=== PATIENT | male | born 1955 | race Caucasian/White ===

== ENCOUNTER → 2017-09-23 10:30 | Outpatient (REF) | payer MEDICARE, SELFPAY ==
[2017-09-23 14:20] LABS: Hemoglobin A1C 7.5 % (0.0-7.0)
== END ==
LOC: LAB.CARL 10:30
DX: E11.621 Type 2 diabetes mellitus with foot ulcer (principal)
CPT/HCPCS: 83036

== ENCOUNTER 2020-06-11 11:02 | Inpatient (IN) | payer MEDICARE, SELFPAY ==
[2020-06-11] VITALS (47 sets, daily range): BP systolic 90–160; BP diastolic 47–107; PULSE 81–152; RESP 14–24; TEMP 36.4–36.8; O2SAT 91–99; BMI 36.9; BMI 40.4
--- NOTE | 2020-06-11 11:04 | ECG_ITS ---
APPROVED REPORT Exam: Resting ECG HR:148 bpm ECG Measurements Heart Rate 148 AXES QRSd 164 QRS 219 QT 338 T 31 QTc 530 <Conclusion> Atrial fibrillation with rapid ventricular response Right bundle branch block LAHB Abnormal ECG Electronically signed by : Nikolas Barnes, 06/12/2020 13:54:54
--- NOTE | 2020-06-11 11:09 | HMH.EDGENADL ---
ED Disposition Clinical Impression: Abdominal distention, Tachycardia CHF exacerbation Qualifiers: Heart failure type: unspecified Qualified Code(s): I50.9 - Heart failure, unspecified Atrial fibrillation Qualifiers: Atrial fibrillation type: unspecified Qualified Code(s): I48.91 - Unspecified atrial fibrillation Ascites Qualifiers: Ascites type: due to alcoholic cirrhosis Qualified Code(s): K70.31 - Alcoholic cirrhosis of liver with ascites Disposition: Admitted As Inpatient Condition on Discharge: Fair Time of Disposition: 12:09 - Critical Care Critical Care Time: No Attestation: On , the high probability of a clinically significant, sudden or life threatening deterioration of the following system(s) required my full and direct attention, intervention and personal management. The time I documented below is in addition to time spent performing reported procedures but includes the following listed in this critical care notation. Medical Decision Making - Medical Records Medical records reviewed: Yes: I reviewed the patient's medical records. MR Comment: 64-year-old male likely with history of CHF, hypertension, A. fib, diabetes, who is not been on any of his medications over the last few weeks, presents the emergency department due to abdominal swelling. On arrival he is tachycardic with irregular rhythm, likely A. fib for which he is supposed to be on Eliquis and metoprolol but does not take these medications. He also has edema throughout his lower extremities and his abdomen is distended but nontender. Given this, will get labs including BNP, troponin, though he does not complain of chest pain, labs, CT of the abdomen and chest x-ray, lactate and reassess. On reassessment, he remained stable. After 2 doses of IV dilt, being placed on a drip, his heart rate is in the 110-120. He has mild cardiac congestion and edema in the bilateral lower extremities with a high BNP, likely CHF exacerbation, also has not been anticoagulated for atrial fibrillation nor on his rate control medications, CT of the abdomen pelvis personally reviewed and read by radiology showing ascites, likely from liver cirrhosis. He has a history of alcohol use, but states he has not drank alcohol in over 4 months. Refuses diagnostic or therapeutic paracentesis and is not in respiratory distress, doubt SBP but was covered with ceftriaxone. Spoke with Dr. Man and will admit for further workup and assessment. - Jose Inquiry Pt receiving controlled substance: No Vital Signs: 06/11/20 11:06 06/11/20 12:03 06/11/20 12:15 Temperature 98.0 F Temperature Source Oral Pulse Rate [Right Radial] 152 H 141 H 138 H Respiratory Rate 20 23 24 Blood Pressure [Right Arm] 160/107 H 126/89 120/76 Blood Pressure Mean [Right Arm] 124 101 90 Blood Pressure Source [Right Arm] Blood Pressure Position [Right Arm] 02 Sat by Pulse Oximetry 98 95 97 Oxygen Delivery Method Room Air Room Air Room Air 06/11/20 12:35 06/11/20 12:40 06/11/20 12:50 Temperature Temperature Source Pulse Rate [Right Radial] 132 H 120 H 137 H Respiratory Rate 19 22 Blood Pressure [Right Arm] 102/73 L 106/69 L 113/81 Blood Pressure Mean [Right Arm] 82 81 91 Blood Pressure Source [Right Arm] Automatic Cuff Blood Pressure Position [Right Arm] Supine 02 Sat by Pulse Oximetry 97 96 97 Oxygen Delivery Method Room Air 06/11/20 13:00 06/11/20 13:10 06/11/20 13:20 Temperature Temperature Source Pulse Rate [Right Radial] 136 H 137 H 95 H Respiratory Rate 21 19 22 Blood Pressure [Right Arm] 92/70 L 112/86 116/75 Blood Pressure Mean [Right Arm] 77 94 88 Blood Pressure Source [Right Arm] Blood Pressure Position [Right Arm] 02 Sat by Pulse Oximetry 93 L 95 95 Oxygen Delivery Method 06/11/20 13:30 Temperature Temperature Source Pulse Rate [Right Radial] 120 H Respiratory Rate 20 Blood Pressure [Right Arm] 125/88 Blood Pressure Mean [Right Arm] 100
--- NOTE | 2020-06-11 11:11 | XR_ITS ---
PROCEDURE: XR CHEST PORTABLE CLINICAL HISTORY: sob Shortness of breath, smoker COMPARISON: No exams were available for comparison FINDINGS: There is mild cardiomegaly without failure. The lungs are clear without infiltrates, suspicious nodules, or pleural effusions. Degenerative changes of the shoulders IMPRESSION: Mild cardiomegaly otherwise negative Dictated by: Jaylen Escalera MD 06/11/2020 12:03 Jaylen Escalera MD in [facility] 06/11/2020 12:03
--- NOTE | 2020-06-11 11:21 | CT_ITS ---
PROCEDURE: CT ABDOMEN PELVIS W CON CLINICAL INDICATION: abdominal swelling/ascites? Ascites, abdominal swelling and pain COMPARISON: No exams were available for comparison TECHNIQUE: IV Contrast: 75ML OPTIRAY 350 Oral Contrast None Axial images obtained with sagittal and coronal reformats. All CT scans at the facility use one or more dose reduction, viz: automated exposure control, ma/kV adjustment per patient size (including targeted exams where dose is matched to indication, i.e. head), or iterative reconstruction technique. FINDINGS: LOWER THORAX: Trace bilateral effusions. Coronary artery calcifications ABDOMEN & PELVIS: The liver has a somewhat irregular contour. There is generalized ascites. The spleen has an unremarkable appearance. The pancreas, adrenal glands, and kidneys are unremarkable. No intestinal obstruction or free air. No evidence of appendicitis. Mild amount of pelvic fluid noted. Artifact is present from right hip prosthesis. Scattered small nodes are present in the inguinal region. There is colonic diverticulosis but no evidence of diverticulitis. There is mild diffuse subcutaneous edema. No acute bony findings. Schmorl's node is present along the inferior endplate of T12. IMPRESSION: 1. There is mild diffuse ascites. The liver margin is somewhat irregular suggesting cirrhosis. Please correlate with clinical parameters. 2. No other significant anomalies apparent. Dictated by: Jaylen Escalera MD 06/11/2020 12:08 Jaylen Escalera MD in [facility] 06/11/2020 12:08
[2020-06-11 11:26] LABS: Basophils # 0.1 K/mm3 (0-0.2); Basophils % 0.7 % (0.1-2.0); Eosinophils # 0.2 K/mm3 (0.0-0.4); Eosinophils % 2.1 % (0.1-12.0); Hematocrit 43.7 % (42.0-52.0); Hemoglobin 13.7 g/dL (14.1-18.0); Lymphocytes # 1.4 K/mm3 (0.7-4.5); Lymphocytes % 19.6 % (10-50); Mean Corpuscular HGB Conc 31.2 g/dL (31.8-35.4); Mean Corpuscular Hemoglobin 29.5 pg (27.0-31.2); Mean Corpuscular Volume 94.4 fl (80-94); Mean Platelet Volume 7.5 fl (7.4-10.4); Monocytes # 0.6 K/mm3 (0.1-1.0); Monocytes % 8.5 % (1.7-9.3); Neutrophils # 4.8 K/mm3 (1.8-7.8); Platelet Count 149 K/mm3 (142-424); Red Blood Count 4.63 M/mm3 (4.60-6.20); Red Cell Distribution Width 14.2 % (11.5-17.5)
[2020-06-11 11:27] LABS: Alanine Aminotransferase 13 U/L (12-78); Albumin Level 3.8 g/dl (3.5-5.0); Albumin/Globulin Ratio 1.1 (1.1-1.8); Alkaline Phosphatase 169 U/L (38-126); Anion Gap 12.1 mEq/L (5-15); Aspartate Amino Transferase 25 U/L (17-59); Bilirubin,Total 1.4 mg/dl (0.2-1.3); Blood Urea Nitrogen 19 mg/dl (9-20); Calcium 9.4 mg/dl (8.4-10.2); Carbon Dioxide 32 mmol/L (22.0-30.0); Chloride 96 mmol/L (98-107); Creatinine Clearance Estimated 112 mL/min (50-200); Estimated Glomerular Filt Rate 68 ml/min (>60); GFR (African American) 82 ML/MIN (>60); Globulin 3.5 g/dL (1.3-3.2); Glucose 132 mg/dl (74-100); Potassium 4.1 mmoL/L (3.5-5.1); Sodium 136 mmol/L (136-145); Total Protein,Serum 7.3 g/dl (6.3-8.2)
[2020-06-11 11:34] LABS: Lactic Acid 1.5 mmol/L (0.7-2.1)
[2020-06-11 11:36] LABS: NT Pro Brain Natriuretic Pep. 3870 pg/mL (0-125)
[2020-06-11 11:40] LABS: Troponin I 0.01 ng/ml (0.00-0.034)
[2020-06-11 11:48] LABS: Coronavirus 19 IgG Antibody Positive (Negative)
[2020-06-11 11:49] LABS: Coronavirus 19 IgM Antibody Positive (Negative)
--- NOTE | 2020-06-11 11:50 | PC.NURSE ---
irwin alexander notified ER of pt igg/igm results.
--- NOTE | 2020-06-11 11:54 | PC.NURSE ---
contacted Josee evp head of [facility] regarding pt IGG/IGM positive, plan is to admit pt pending the rest of his testing. Covid swab has been ordered for pt, verifying procedure for admission for pt. Josee states she is going to contact lab and change the swab to an inhouse swab and pt will stay in ER until resulted. notified ER MD of the above
[2020-06-11 11:55] LABS: VBG Base Excess 3.7 mmol/L (-2.4-2.3); VBG HCO3 28.3 mmol/L (23-30); VBG Oxygen Saturation 94.5 % (50-70); VBG PCO2 45.1 mmol/L (35-51); VBG PH 7.42 mmol/L (7.31-7.41); VBG PO2 69.6 mmol/L (28-40); VBG Total CO2 29.7 mmol/L (23-27)
--- NOTE | 2020-06-11 12:50 | PC.NURSE ---
CAIO COLLIER spoke with Dr. Man
--- NOTE | 2020-06-11 12:54 | PC.NURSE ---
contacted care management for admission, spoke with Serene.
--- NOTE | 2020-06-11 13:15 | PC.NURSE ---
Titrated cardizem to 10mg/hr
--- NOTE | 2020-06-11 14:16 | PC.NURSE ---
Contacted lab for update on covid results, stated it would take an additional 80 mins to result
--- NOTE | 2020-06-11 14:22 | PC.NURSE ---
Titrated cardizem to 15mg/hr
--- NOTE | 2020-06-11 15:05 | PC.NURSE ---
Notified that pt is maxed out on cardizem, no new orders given
[2020-06-11 15:12] LABS: Troponin I 0.01 ng/ml (0.00-0.034)
--- NOTE | 2020-06-11 15:32 | HMH.PHAVTE ---
[facility] Pharm[facility] VTE Monitoring - Patient Demographics Admission date: 06/11/20 Report Date: 06/11/20 Time: 15:32 Allergies/Adverse Reactions: Patient Allergies No Known Allergies Allergy (Verified 06/11/20 11:10) Height: 1.75 m Weight: 113.398 kg Patient Problems: Current Active Problems Abdominal distention (Acute) Tachycardia (Acute) CHF exacerbation (Acute) Atrial fibrillation (Acute) Ascites (Acute) - VTE Risk Labs: VTE Related Lab Results Hgb 13.7 g/dL (14.1-18.0) L 06/11/20 10:56 Hct 43.7 % (42.0-52.0) 06/11/20 10:56 Plt Count 149 K/mm3 (142-424) 06/11/20 10:56 BUN 19 mg/dl (9-20) 06/11/20 10:56 Creatinine 1.10 mg/dl (0.66-1.25) 06/11/20 10:56 Estimated Creat Clear 112 mL/min (50-200) 06/11/20 10:56 - Prophylaxis VTE Prophylaxis Ordered?: Yes Types of VTE Prophylaxis: Pharmacological Pharmacologic Type: Other (ELIQUIS)
--- NOTE | 2020-06-11 15:37 | PC.NURSE ---
lab called, swab failed for Covid test, lab will be coming to re swab patient and retest
--- NOTE | 2020-06-11 15:41 | PC.NURSE ---
Lab here to collect repeat swab
--- NOTE | 2020-06-11 15:42 | PC.NURSE ---
notified cleaner housekeeping of pt having to rewabbed for covid r/t previous test failed. asked for a hospital bed for pt for comfort, states she will contact the floor to have staff bring down a bed for pt. contacting cafeteria to get pt a tray. ER aware of the above. will continue to monitor.
--- NOTE | 2020-06-11 15:46 | PC.NURSE ---
Dietary notified for meal tray
--- NOTE | 2020-06-11 16:44 | PC.NURSE ---
pt moved from ER stretcher to hospital bed
--- NOTE | 2020-06-11 17:39 | PC.NURSE ---
SPOKE WITH [facility], THEY STATED NO BEDS AVAILABLE AND UNSURE WHEN THERE WILL BE A BED.
--- NOTE | 2020-06-11 18:00 | PC.NURSE ---
Cardizem titrated to 10mg/hr
--- NOTE | 2020-06-11 18:15 | PC.NURSE ---
Called lab for update on covid swab, stated it would be another hour before completion
[2020-06-11 18:44] LABS: POC Glucose,Bedside 192 (70-110)
--- NOTE | 2020-06-11 19:10 | PC.NURSE ---
patient not on the floor
--- NOTE | 2020-06-11 19:33 | PC.NURSE ---
Cardizem gtt at 5ml/hr as ordered
--- NOTE | 2020-06-11 20:03 | PC.NURSE ---
PT ARRIVED TO THE FLOOR VIA BED W/STAFF FROM ED AT 2004
[2020-06-11 21:13] LABS: POC Glucose,Bedside 135 (70-110)
--- NOTE | 2020-06-11 22:19 | PC.NURSE ---
Late entry: @ 2030 s/w Dr. Man, new order received for Metoprolol Succinate 25mg PO 1x now, BMP Lab for am, Tylenol 500 mg PO q4P for pain, and new parameters for Cardizem gtt. Stop Cardizem gtt if HR < 70 or MAP < 65. ok to continue on Cardizem @ 5mg/hr during the night as long as HR & BP stay in parameters.
--- NOTE | 2020-06-11 22:24 | PC.NURSE ---
Admission pictures completed and Consent signed on chart.
--- NOTE | 2020-06-11 22:25 | PC.NURSE ---
Pt received total shower and placed in gown.
[2020-06-12] VITALS (32 sets, daily range): BP systolic 95–143; BP diastolic 45–91; PULSE 66–132; RESP 16–20; TEMP 36.4–36.9; O2SAT 91–95; BMI 40.0
--- NOTE | 2020-06-12 | XR_ITS ---
PROCEDURE: XR FOOT RT MIN 3V CLINICAL INDICATION: PAIN Pain and stiffness COMPARISON: No exams were available for comparison FINDINGS: This exam was submitted to [facility] for interpretation on 07/30/2020. there has been prior amputation at the proximal aspect of the 5th metatarsal. Mild osteoarthritic changes are present at the metatarsophalangeal joints. There is also mild osteoarthritis at the 1st metatarsophalangeal joint and at the navicular cuneiform joint. Prominent bony hypertrophic changes are present at the anterior distal tibia. Calcaneal spur and an Achilles enthesophyte is noted. IMPRESSION: Degenerative changes as described above. Prior amputation at the proximal to mid aspect of the 5th metatarsal Dictated by: Jaylen Escalera MD 07/30/2020 15:29 Jaylen Escalera MD in [facility] 07/30/2020 15:29
--- NOTE | 2020-06-12 | XR_ITS ---
PROCEDURE: XR ANKLE RT MIN 3V CLINICAL INDICATION: PAIN Pain and stiffness COMPARISON: No exams were available for comparison FINDINGS: The study is submitted to [facility] interpretation on 07/30/2020. There is a nondisplaced fracture involving the distal tibia medially. An old fracture involves the medial malleolar region. Prominent osteoarthritic changes are present at the ankle joint. Small calcaneal spur and small Achilles enthesophyte is noted. IMPRESSION: Nondisplaced oblique fracture at the medial and distal aspect of the tibia possibly old with an old avulsion fracture at the medial malleolus and osteoarthritic change Dictated by: Jaylen Escalera MD 07/30/2020 15:28 Jaylen Escalera MD in [facility] 07/30/2020 15:28
[2020-06-12 00:37] LABS: Microscopic, Urine URINE MICROSCOPIC (MICROSCOPIC)
[2020-06-12 00:44] LABS: Appearance,Urine CLEAR (Clear); Bilirubin,Urine Negative (Negative); Blood, Urine Negative (Negative); Color,Urine YELLOW (Yellow); Glucose,Urine (UA) Negative (Negative); Ketones,Urine Negative (Negative); Leukocyte Esterase,Urine Negative (Negative); Nitrate,Urine Negative (Negative); PH,Urine 5.5 (5.0-8.5); Protein,Urine Negative (Negative); Urobilinogen,Urine 0.2 EU/dl (0.2)
[2020-06-12 00:52] LABS: Bacteria,Urine Trace /lpf
--- NOTE | 2020-06-12 06:00 | PC.NURSE ---
Pt is A&O and has ambulated to the BR 2x this shift with staff assist x1 and pt tolerated well. Pt has denied any SOB, dsypnea, or dizziness. Pt has c/o pain to his legs but reports they always feel like that , pt offered PRN Tylenol but pt refused stating That doesn't do anything . Scattered wheezing noted on lung auscultation. At times during long sentences it is noted the pt needs to take breaks for breath. Although pt continues to deny any SOB or trouble breathing. Room air sat 91-96%. Pt is ~4lbs less than on admission. HR irregular and afib with IVCD noted on tele. Cardizem gtt has continued t/o this shift @ 5mg/hr. HR 80s-100's. A few times up 120s when getting OOB. BP is WNL. Pitting edema noted to anterior bilat feet. Pt reports decreased to no feeling anterior BLE. Pt able to move toes, and ankle fair d/t tightness r/t edema. Dry, scaly skin on BLE. Large ulceration area to anterior of RLE with scabbed areas. Faint distal pulses. Poor nail hygiene. Poor dentition. Pt brought home meds with him, these were placed in the locked med drawer and home med magnet placed on door. Call light within reach, will continue to monitor.
--- NOTE | 2020-06-12 06:35 | PC.NURSE ---
Cardizem gtt increased to 10mg/hr d/t increased HR sustaining 110s-130s.
[2020-06-12 08:08] LABS: Anion Gap 11.1 mEq/L (5-15); Blood Urea Nitrogen 18 mg/dl (9-20); Carbon Dioxide 32 mmol/L (22.0-30.0); Chloride 96 mmol/L (98-107); Creatinine Clearance Estimated 122 mL/min (50-200); Estimated Glomerular Filt Rate 68 ml/min (>60); GFR (African American) 82 ML/MIN (>60); Glucose 114 mg/dl (74-100); Potassium 4.1 mmoL/L (3.5-5.1); Sodium 135 mmol/L (136-145)
--- NOTE | 2020-06-12 08:48 | US_ITS ---
APPROVED REPORT Exam Type: Lower Extremity Segmental Pressures Sprayer Hand: Linsey Gomez RVT Indications Non-healing Ulcer: Right Rest Pain: Bilaterally WOUND RT LATERAL LOWER CALF,DM, REST PAIN,SMOKER,CIRRHOSIS Risk Factors Obesity Diabetes Current Smoker Pressures/Indices Right Indices Left Indices Brachial 105.00 mmHg Brachial 97.00 mmHg Low Thigh 103.00 mmHg 0.98 Low Thigh 114.00 mmHg 1.09 Calf 105.00 mmHg 1.00 Calf 101.00 mmHg 0.96 Ankle(PT) 113.00 mmHg 1.08 Ankle(PT) 110.00 mmHg 1.05 Ankle(DP) 104.00 mmHg 0.99 Ankle(DP) 96.00 mmHg 0.91 Digit 90.00 mmHg 0.86 Digit 70.00 mmHg 0.67 Findings RT IFEOMA:1.08 LT IFEOMA:1.05 RT TBI:0.86 LT TBI:0.67 DAMPENED PULSES ON THE RIGHT, NORMAL ON THE LEFT NORMAL WAVEFORMS BILATERAL Conclusion RT IFEOMA:1.08 LT IFEOMA:1.05 RT TBI:0.86 LT TBI:0.67 DAMPENED PULSES ON THE RIGHT, NORMAL ON THE LEFT NORMAL WAVEFORMS BILATERAL NORMAL IFEOMA Electronically signed by : Jaylen Escalera MD 06/16/2020 17:12:30
--- NOTE | 2020-06-12 09:21 | PC.NURSE ---
cardizem gtt titrated down to 5mg/hr.
--- NOTE | 2020-06-12 10:47 | HMH.PHAINT ---
MEDICATION RECONCILIATION COMPLETED ON PATIENT USING EXTERNAL FILL HISTORY FROM PHARMACY. -WILLY BEARDEN, NAKIAD
--- NOTE | 2020-06-12 11:09 | HMH.HP ---
*Admission Date: 06/11/20 *Chief complaint: scrotal swelling and right foot pain *History of present illness: 64 year old male with history of CVA, DM, HTN, presented to ER with family. Family apparently was concenred about worsening health. Patient originally had no complaints but by this morning claims he was worried about scrotal swelling and right foot pain. Iron is an extremely poor historian and can provide very little medical history. HE reports feeling better this morning. Because of lab abnormalities and EKG he was admitted for CHF exacerbation and A-fib w/RVR. He has remained on Cardizem drip overnight with pulse now between 80-110. I was able to contact his brother, Tony, who reported no history of CAD but iron has had 3 strokes . Patient is generally non-compliant according to his brother. Patient apparently used to drink large quantities of alcohol regularly but has not had alcohol in quite some time. Patient is a smoker. [facility] History I have reviewed the patient's past medical history: Yes Medical History: Reports:: Atrial Fibrillation, Cerebrovascular Accident, Diabetes Mellitus Type 2, Hyperlipidemia, Hypertension, Peripheral Vascular Disease Denies:: Cancer, Diabetes Mellitus Type 1 *Have you ever received a pneumonia vaccine?: No *Have you received a flu vaccine this season?: No Other Medical History: Reports: Arthritis Laterality Cases: Right: Total Hip Replacement Comment: Right Fifth toe amputation - *Social History Last grade of school completed: 9th or 10th Smoking Status: Current every day smoker Tobacco Type: cigarettes # Packs/Day (cigarettes): 2 Alcohol Intake: former Alcohol Intake Frequency:: 3 or more drinks per day *Occupational Status:: disabled Household Members: none *Travel in the last 8 weeks: None Family Hx:: Diabetes, Heart Attack Review of Systems - Review of Systems Review of systems:: pertinent systems reviewed and negative unless documented below - *Genitourinary Reports scrotal swelling - *Musculoskeletal Reports limited joint movement (right foot/ankle), Reports stiffness (right foot ankle) - *Neurologic Reports abnormal walking - Psychiatric Reports confusion Meds Home Medications Medication Instructions Recorded Confirmed Type Amlodipine Besylate [Amlodipine 5 mg PO DAILY 06/11/20 06/11/20 History 5mg tab] Apixaban [Eliquis] 5 mg PO BID 06/11/20 06/11/20 History Atorvastatin Calcium [Lipitor 40mg 40 mg PO HS 06/11/20 06/11/20 History Tablet*] Clopidogrel Bisulfate [Clopidogrel 75 mg PO DAILY 06/11/20 06/11/20 History 75mg Tab] Metformin HCl [Metformin 1000mg 500 mg PO BID 06/11/20 06/11/20 History Tablets] Metoprolol Succinate [Metoprolol 150 mg PO DAILY 06/11/20 06/11/20 History Succinate 100mg Tablet*] Torsemide [Demadex] 40 mg PO DAILY 06/11/20 06/11/20 History glipiZIDE [Glipizide] 10 mg PO BID 06/11/20 06/11/20 History lisinopriL [Lisinopril 10mg Tab] 10 mg PO DAILY 06/11/20 06/11/20 History Albuterol Sulfate [Proair Hfa] 1 - 2 puffs IH Q4HP PRN 06/12/20 06/12/20 History Allergies Allergy/AdvReac Type Severity Reaction Status Date / Time No Known Allergies Allergy Verified 06/11/20 11:10 Exam Vital signs and Labs for Last 24 Hours: Temp Pulse Resp BP Pulse Ox 98.4 F 105 H 17 101/63 L 91 L 06/12/20 08:00 06/12/20 10:36 06/12/20 09:00 06/12/20 10:00 06/12/20 09:00 Laboratory Results - last 24 hr 06/11/20 10:56: WBC 7.0, RBC 4.63, Hgb 13.7 L, Hct 43.7, MCV 94.4 H, MCH 29.5, MCHC 31.2 L, RDW 14.2, Plt Count 149, MPV 7.5, Neut % (Auto) 69.0, Lymph % (Auto) 19.6, [place] % (Auto) 8.5, Eos % (Auto) 2.1, Baso % (Auto) 0.7, Neut # (Auto) 4.8, Lymph # (Auto) 1.4, [place] # (Auto) 0.6, Eos # (Auto) 0.2, Baso # (Auto) 0.1 06/11/20 10:56: Sodium 136, Potassium 4.1, Chloride 96 L, Carbon Dioxide 32 H, Anion Gap 12.1, BUN 19, Creatinine 1.10, Estimated Creat Clear 112, Estimated GFR 68, Est GFR ( Amer) 82, Glucose 132
[2020-06-12 11:25] LABS: POC Glucose,Bedside 99 (70-110)
[2020-06-12 11:41] LABS: POC Glucose,Bedside 173 (70-110)
--- NOTE | 2020-06-12 12:20 | HMH.PTWOUND ---
Rehab Inpt Wound Evaluation Rehab IP Wound Evaluation Start: 06/12/20 08:32 Freq: ONCE Status: Active Protocol: Document 06/12/20 12:16 CLARA (Rec: 06/12/20 12:19 CLARA [id number]) Rehab PT Wound Assessment Patient Status Premedicated Prior to Dressing Change No Subjective Subjective Pt reports he cannot feel anterior lower legs - but states he is very ticklish - Pt alert to name only. Wound Right Lower [place] Wound Type Stasis Ulcer Wound Bed Appearance Beefy Red Percentage Granulated (%) 100 Wound Margins Description Indistinct Surrounding Tissue Appearance Gail Primary Dressing Unna Boot Wound Secondary Dressing Type Unna Boot Wound Debridement Method Mechanical Wound Debridement Amount of Tissue Minimal Removed Wound Debridement Result Healthy Tissue Revealed, Stopped Due to Bleeding, Necrotic Tissue Remains Dressing Change Date 06/12/20 Dressing Change Patient Tolerance Tolerated Poorly Plan/Recommendation Comment Pt wounds appear to be from venous issues and self neglect - pt had log black hair in wound scab and hyperkeratous skin in periwound area. Pt will need home health nsg for wound care/unna boot change and med reconciliation Eval Complexity Eval Charge Codes 22202 - Moderate Complexity G-codes PT Current Status Other PT/OT Status PT Current Status Modifier CN-At least 100% impaired, limited or restricted PT Goal Status Other PT/OT Status PT Goal Status Modifer CN-At least 100% impaired, limited or restricted PHYSICIAN CERTIFICATION: I certify the specified therapy services for Abrahan Pickard are required, authorized, and reviewed every 30 days.
--- NOTE | 2020-06-12 14:50 | PC.NURSE ---
per roxana alicea.
[2020-06-12 16:35] LABS: POC Glucose,Bedside 98 (70-110)
--- NOTE | 2020-06-12 16:37 | PC.NURSE ---
PT HAS BEEN AO T/O SHIFT, ABLE TO ANSWER QUESTIONS AND FOLLOW COMMANDS, VISUAL PROBLEMS NOTED, UNEQUAL PUPILS NOTED, RIGHT PUPIL REACTS SLUGGISHLY AND REMAINS DILATED AT 4, WHILE LEFT EYE REACTS BRISKLY WITH 2MM NOTED, WOULD CARE CONSULT THIS AM, PT RIGHT LEG PAINTED WITH BETADINE AND COVERED WITH DSG IN PLACE C/D/I, SKIN OF LOWER LEGS AND FEET IS DRY AND CRACKED, +1 NON-PITTING EDEMA NOTED BILATERAL FEET, HR HAS REMAINED <100BPM FOR PERIODS T/O SHIFT AND DILTIAZEM DRIP D/C PER GAUTAM WARNER NOTED ON TELE WITH HR 70-90 BPM, PT STATES THAT HE HAS POOR SENSATION IN FEET BUT REACTS WHEN FEET ARE TOUCHED DURING DRESSING CHANGES AND OTHER CARE, POOR DENTITION AND OVERALL HYGIENE NOTED, CALL LIGHT WITHIN REACH, WILL CONTINUE TO MONITOR.
[2020-06-12 20:41] LABS: POC Glucose,Bedside 113 (70-110)
[2020-06-13] VITALS (11 sets, daily range): BP systolic 100–147; BP diastolic 58–78; PULSE 73–105; RESP 16–21; TEMP 36.4–37; O2SAT 89–95; BMI 40.0; BMI 40.1
--- NOTE | 2020-06-13 03:15 | PC.NURSE ---
A&OX4. BLE +2 PITTING EDEMA NOTED WITH DSG C/D/I TO RLE AND SCALY, DRY SKIN TO LLE. WHEEZES NOTED TO BILAT. LUNGS, PT. DENIES SOA. HR 80-90 AT REST AND 90-100 WITH MOVEMENT. AFIB PER CAR SUPERVISOR.
[2020-06-13 05:57] LABS: POC Glucose,Bedside 106 (70-110)
--- NOTE | 2020-06-13 06:50 | CA_ITS ---
APPROVED REPORT EXAM: Comprehensive 2D, Doppler, and color-flow Echocardiogram Industrial Relations Director: Hue Fonseca, RT(R) Ht: 5 ft 9 in Wt: 270lbs BSA: 2.35 BP: 101/63 mmHg Indications: hx CVA, AFIB with RVR, smoker, HTN, hyperlipidemia, noncompliant with medications, DM, PVD, ETHO abuse Echo Enhancing Agent Indication: Endocardial border delineation Agent(s) / Amount(s) Used: Definity 2 cc 2D Dimensions LVOT 2.53 cm (M/F) 1.5-2.5 M-Mode Dimensions RVDd 2.84 cm (0.9-2.6) LVDd 5.34 cm (3.5-5.7) LVDs 4.67 cm (3.5-5.7) IVSd 1.53 cm (0.6-1.1) PWd 0.98 cm (0.6-1.1) EF (Teich) 26.80% FS 12.50% EDV (Teich) 137.70 mL ESV (Teich) 100.80 mL Left Ventricle Technically difficult study because of the patient factors and poor acoustic windows, Definity contrast was utilized to delineate the endocardial surfaces. Left atrium is mildly enlarged, left ventricle is normal size, mild concentric left ventricular hypertrophy, visually estimated ejection fraction 55% with no regional wall motion abnormality, there is no left ventricular thrombus seen. Right Ventricle Right atrium and right ventricle are mildly enlarged with normal contractility. Aortic Valve Aortic valve is minimally thickened and fibrosed, there is no aortic stenosis or aortic insufficiency. Mitral Valve Mitral valve leaflets are minimally thickened, there is mild mitral regurgitation. Tricuspid Valve Tricuspid valve is grossly normal, there is mild tricuspid regurgitation, tricuspid regurgitation jet velocity is inadequate for calculation of the right ventricular systolic pressure. Pulmonic Valve Pulmonic valve is poorly visualized. Great Vessels Aortic root is normal size. Pericardium No significant pericardial effusion noted. Conclusion 1. Biatrial enlargement, normal left ventricular size, mild concentric left ventricular hypertrophy, visually estimated ejection fraction 55% with no regional wall motion abnormality, diastolic parameters are inconclusive. 2. Mildly enlarged right ventricle with normal contractility. 3. Mild mitral and tricuspid regurgitation 4. No significant pericardial effusion noted. Electronically signed by : Merlin Blair, 06/13/2020 13:15:17
--- NOTE | 2020-06-13 07:19 | HMH.ACPN2 ---
Internal Medicine - PN: Subj *Date: 06/13/20 *Time: 07:19 Interval history: Patient complains of overall body pain this morning. Patient has been laying in bed now since admission. He denies shortness of breath. He reports improvement in abdominal distention and scrotal swelling. Patient was evaluated by PT yesterday and had an Unna boot applied to the right lower leg. We have been unable to obtain records from regarding the patient's hospitalizations there earlier in the year. Patient did have decrease in O2 sats to 77% overnight. Drop in O2 sats were transient but did appear to be related to episodes of apnea. Exam Vital signs and Labs for Last 24 Hours: Temp Pulse Resp BP Pulse Ox 98 F 92 H 20 147/77 H 90 L 06/13/20 04:00 06/13/20 04:00 06/13/20 04:00 06/13/20 04:00 06/13/20 04:00 Laboratory Results - last 24 hr 06/12/20 06:01: POC Glucose 99 06/12/20 06:02: Sodium 135 L, Potassium 4.1, Chloride 96 L, Carbon Dioxide 32 H, Anion Gap 11.1, BUN 18, Creatinine 1.10, Estimated Creat Clear 122, Estimated GFR 68, Est GFR ( Amer) 82, Glucose 114 H, Calcium 9.0 06/12/20 11:13: POC Glucose 173 H 06/12/20 16:26: POC Glucose 98 06/12/20 20:20: POC Glucose 113 H 06/13/20 05:33: POC Glucose 106 I & O for Last 24 hours: Intake & Output 06/10/20 06/11/20 06/12/20 06/13/20 11:59 11:59 11:59 11:59 Intake Total 1415 / 1775 890 / 890 Output Total 2400 / 2400 1700 / 1700 Balance -985 / -625 -810 / -810 Weight 250 lb 270 lb 8 oz 270 lb 4 oz Narrative: Patient is in no distress. Heart rate is irregularly irregular. Lungs remain clear. Abdomen is mildly distended and soft without tenderness. Patient continues to have dependent edema of the posterior lower extremities. IFEOMA of the right lower extremity was unremarkable Assessment and Plan (1) Atrial fibrillation with RVR Status: Acute Category: Medical Code(s): I48.91 - Unspecified atrial fibrillation Improved. Patient will have his metoprolol increased back to his home dosing of metoprolol succinate extended release 150 mg daily. Continue digoxin. Echocardiogram today to assess LV function (2) Peripheral arterial disease Status: Chronic Category: Medical Code(s): I73.9 - Peripheral vascular disease, unspecified (3) Diabetes mellitus with hyperglycemia Status: Chronic Qualifiers: Diabetes mellitus type: type 2 Diabetes mellitus nursing home insulin use: without nursing home use Qualified Code(s): E11.65 - Type 2 diabetes mellitus with hyperglycemia Category: Medical Code(s): E11.65 - Type 2 diabetes mellitus with hyperglycemia Stable. (4) Right heart failure Status: Suspected Qualifiers: Heart failure chronicity: acute on chronic Qualified Code(s): I50.813 - Acute on chronic right heart failure Category: Medical Code(s): I50.810 - Right heart failure, unspecified Echocardiogram today. Patient's signs of right heart failure may be due to his possible underlying cirrhosis due to a history of heavy alcohol use (5) Ascites Status: Acute Qualifiers: Ascites type: due to alcoholic cirrhosis Qualified Code(s): K70.31 - Alcoholic cirrhosis of liver with ascites Category: Medical Code(s): R18.8 - Other ascites Ultrasound of the liver today (6) Venous ulcer of right leg Status: Acute Category: Medical Code(s): I83.019 - Varicose veins of right lower extremity with ulcer of unspecified site; L97.919 - Non-pressure chronic ulcer of unspecified part of right lower leg with unspecified severity Maintain Unna boot. Patient will need home health for snf and application of Unna boot at discharge (7) History of partial amputation of toe of right foot Status: Chronic Category: Surgical Code(s): Z89.421 - Acquired absence of other right toe(s) (8) Cognitive impairment Status: Acute Category: Medical Code(s): R41.89 - Other symptoms and signs involving cogniti
--- NOTE | 2020-06-13 09:55 | SW/DCPLANNER ---
Addendum entered by Ashley Lemus 06/13/20 11:26: Yohana has called back and stated that services will begin on Tuesday for this patient. Addendum entered by Ashley Lemus 06/13/20 11:23: Yohana with [facility] is currently reviewing referral. Original Note: SPOKE WITH PATIENT AND HE HAS AGREED TO HAVE HOME HEALTH ..... PATIENT CHOSE [facility] AND I HAVE SENT ORDERS AND PATIENT INFORMATION FOR SERVICES TO START ON TUESDAY PER PATIENT REQUEST.... PATIENT WILL DISCHARGE HOME OVER THE WEEKEND (SAT)..
[2020-06-13 11:25] LABS: POC Glucose,Bedside 97 (70-110)
--- NOTE | 2020-06-13 11:33 | HMH.PTEV ---
Physical Therapy Evaluation Rehab PT IP Evaluation Start: 06/13/20 06:50 Freq: ONCE Status: Active Protocol: Document 06/13/20 11:30 PHORNE (Rec: 06/13/20 11:33 PHORNE [id number]) Subjective/History History History 64 yowm adm to [facility] with a-fib, PAD. He reports he lives alone and has no steps to enter the home. Subjective Subjective Pt c/o feeling tired, but otherwise no significant discomfort. Rehab PT IP Eval Objective Appearance Patient Behavior Appropriate Patient Orientation Person,Place,Time Difficulty following instructions none Speech Pattern Clear Ambulation Patient Able to Ambulate Yes Ambulation Observation IP General Gait Pattern Observation Wide Based Gait Ambulation Distance (feet) 5 Ambulation Assistive Device None Ambulation Ability Contact Guard/Hand Hold Balance Ability to Arise Able, uses arms to help Sitting Balance Steady, safe Standing Balance Steady, wide stance Dynamic Sitting Balance Ability Good Dynamic Standing Balance Ability Fair Transfers Bed Transfer Ability Contact Guard/Hand Hold Chair Transfer Ability Contact Guard/Hand Hold Sit to Stand Bed Transfer Ability Contact Guard/Hand Hold Sit to Stand Chair Transfer Ability Contact Guard/Hand Hold ROM All Extremities PT ROM Status WFL MMT All Extremities PT MMT WFL Rehab PT IP prob,goals,plan Problems Date of Evaluation: 06/13/20 PT IP Problems Bed Mobility,Transfers,Gait Rehab Potential Rehab Potential Good Plan PT Intervention Plan Bed Mobility,Transfers,Gait, Therapeutic Exercise PT Plan Frequency BID Duration LOS Discharge Goals Bed Transfer Ability Supervision/Stand by Sit to Stand Chair Transfer Ability Supervision/Stand by Ambulation Assistive Device Rolling Walker Ambulation Distance (feet) 20 Discharge Plan PT Discharge Plan Pt is appropriate to return home once medically stable, recommend home health therapy. G -code Required No Eval Complexity Eval Charge Codes 51575 - Moderate Complexity PHYSICIAN CERTIFICATION: I certify the specified therapy services for Abrahan Pickard are required, authorized, and reviewed every 30 days.
--- NOTE | 2020-06-13 14:21 | PC.NURSE ---
NOTED THAT PT WAS SCRATCHING HIS RFA TO THE POINT OF BLEEDING. CONSENT OBTAINED FOR PICTURES TO BE TAKEN OF SITE. PICTURES TAKEN AND PLACED ON CHART. AREA CLEANED AND AND CLEAN DRESSING APPLIED. PT EDUCATED ON IMPORTANCE OF NOT ITCHING SKIN AND KEEPING SITE C/D/I.
[2020-06-13 16:27] LABS: POC Glucose,Bedside 142 (70-110)
--- NOTE | 2020-06-13 17:12 | PC.NURSE ---
Pt has been up to chair multiple times this shift requiring only standby assistance. Pt remains on room air. No complaints voiced this shift. Did receive a shower and linen change this shift. Pt was able to bathe himself for the most part only needing occasional assistance. Remains on fluid restriction. Voiding w/o difficulty per urinal. Urine is much less dark than it was at beginning of shift. Ingrid boot in place to RLE, C/D/I. Call rhys w/in reach. VSS. Will continue to monitor.
--- NOTE | 2020-06-13 19:09 | PC.NURSE ---
report given to tommy
[2020-06-13 20:43] LABS: POC Glucose,Bedside 141 (70-110)
[2020-06-14] VITALS: BP 138/78; PULSE 72; PULSE 90; RESP 16; TEMP 36.4; O2SAT 96
--- NOTE | 2020-06-14 01:22 | PC.NURSE ---
2300- O2 2L NC APPLIED: O2 SAT 93%; RA AT REST: 86%
[2020-06-14 04:00] VITALS: BP 137/85; PULSE 81; PULSE 90; RESP 18; TEMP 36.7; O2SAT 93
--- NOTE | 2020-06-14 04:16 | PC.NURSE ---
PT. HAS NOT C/O N/V/D, PAIN, SOA OR DIZZINESS THIS SHIFT. EXPIRATORY WHEEZES NOTED T/O. 2L NC APPLIED INTERMITTENTLY, PT. TOLERATED FAIR. ABD DISTENTION NOTED WITH ACTIVE BOWELS SOUNDS; PT. DENIES ABD TENDERNESS.
[2020-06-14 05:00] VITALS: BMI 39.9
[2020-06-14 05:12] LABS: POC Glucose,Bedside 92 (70-110)
--- NOTE | 2020-06-14 07:00 | US_ITS ---
PROCEDURE: US LIVER CLINICAL INDICATION: Cirrhosis COMPARISON: CT CT ABDOMEN PELVIS W CON from 06/11/2020 US US LIVER from 06/13/2020 FINDINGS: PANCREAS: Unremarkable. No obvious mass or abnormal fluid collection. No ductal dilatation LIVER: There is coarse echogenicity of the liver with some irregularity of the liver surface consistent with cirrhosis. There is appropriate direction of blood flow within a non dilated portal vein. RIGHT KIDNEY: Unremarkable. GALLBLADDER: No gallstones, gallbladder wall thickening, pericholecystic fluid, or biliary dilatation. Small amount fluid is present in the right upper quadrant IMPRESSION: Cirrhotic appearance of the liver. No gallstones. Small amount of fluid noted in the right upper quadrant. Dictated by: Jaylen Escalera MD 06/16/2020 06:15 Jaylen Escalera MD in [facility] 06/16/2020 06:15
--- NOTE | 2020-06-14 07:57 | PC.NURSE ---
Ultrasound called and said they would be here in 15 minutes to do the ultrasound.
[2020-06-14 08:00] VITALS: BP 134/74; PULSE 84; PULSE 90; RESP 18; TEMP 36.5; O2SAT 94
--- NOTE | 2020-06-14 08:16 | HMH.DCSUM ---
General - General Admission date:: 06/11/20 Discharge date: 06/14/20 HPI HPI: 64 year old male with history of CVA, DM, HTN, presented to ER with family. Family apparently was concenred about worsening health. Patient originally had no complaints but by this morning claims he was worried about scrotal swelling and right foot pain. Iron is an extremely poor historian and can provide very little medical history. HE reports feeling better this morning. Because of lab abnormalities and EKG he was admitted for CHF exacerbation and A-fib w/RVR. He has remained on Cardizem drip overnight with pulse now between 80-110. I was able to contact his brother, Tony, who reported no history of CAD but iron has had 3 strokes . Patient is generally non-compliant according to his brother. Patient apparently used to drink large quantities of alcohol regularly but has not had alcohol in quite some time. Patient is a smoker. Hospital Course Hospital Course: Patient was admitted and placed on Cardizem drip for rate control. On the first evening of admission patient was also restarted on his home beta-blockers. By the afternoon of June 12 patient's Cardizem drip was discontinued as patient had been transitioned to metoprolol succinate extended release 100 mg and had begun IV loading of digoxin. Once Cardizem drip was discontinued patient's pulse rate consistently remained under 100. Attempt was made to obtain records from outside hospitals as this was patient's first admission here. When those were not obtained timely enough echocardiogram proceeded. Echocardiogram showed a normal ejection fraction of 55% with biatrial enlargement. Diastolic parameters were inconclusive. Patient remained in atrial fibrillation, although rate controlled, the entirety of hospitalization and was discharged home on metoprolol and digoxin for continued rate control. Patient had been prescribed Eliquis previously by other physicians and this was continued while hospitalized and patient will be on this indefinitely. Patient has history of hypertension. Blood pressure was well controlled during hospitalization by first the Cardizem drip and then initiation of his home medications. Patient is suspected COPD due to a long history of smoking. He did develop wheezing intermittently during hospitalization. Patient will have a controller medication prescribed at discharge (Bevespi) Patient had a superficial wound on the right lower extremity. Wound care was consulted and placed the right lower extremity in an Unna boot. Patient will keep his Unna boot in place and home health for wound care and nursing has been arranged. Patient has cognitive impairment which impairs all aspects of care. Home health has been arranged for nursing education and to assist with medical compliance. Patient complained of body wide pain from arthritis in his back. PT was consulted and felt patient would best be served by continued PT at home. Patient will receive physical therapy services through home health. Patient was detected of having nocturnal hypoxia with O2 sats reaching the 70s on room air while asleep. Patient was started on supplemental oxygen of 2 L/min at night. He will need to continue this indefinitely Patient has diabetes. With a proper diet here his blood sugars were not an issue. Patient will continue his metformin but I will discontinue his sulfonylurea at discharge. Patient had ascites and lower extremity edema which I believe initially may be due to some right-sided heart failure. As patient's mental status improved and we were able to talk with family patient has a history of heavy alcohol use. He has not had any alcohol in approximately [address] scan of the abdomen performed on admission raise concern for cirrhosis. Abdominal ultrasound was ordered which at the time of this dictation has not been finalized. Patient likely has a cirrhotic liver contributing to his asci
[2020-06-14 08:29] VITALS: PULSE 84
[2020-06-14 09:00] VITALS: O2SAT 95
--- NOTE | 2020-06-14 12:07 | PC.NURSE ---
A&OX4. PT TOLERATED ROOM AIR WELL THROUGHOUT SHIFT. RESPIRARATIONS REGULAR AND UNLABORED. NO COUGH NOTED. EXPIRATORY WHEEZES SCATTERED THROUGHOUT. +1 PITTING EDEMA NOTED IN BLE. JANET BOOT NOTED TO RLE. SCABBED SCRATCHES NOTED TO RFA. SCALY SKIN NOTED TO LLE. NO PAIN REPORTED. PT REMAINED AFEBRILE. ACTIVE BOWEL SOUNDS HEARD IN ALL 4 QUADRANTS. SOFT AND NONTENDER BUT DISTENDED. NO BM REPORTED. PT VOIDS PER URINAL. CLEAR YELLOW URINE NOTED. HANG DRESS MARKER EQUAL. PT MOVES INDEPENDENTLY IN BED. PT RECEIVED EDUCATION FROM PHARMACY ON NEW MEDICATIONS BEING SENT HOME WITH PATIENT. PT VERBALIZED UNDERSTANDING. DISCHARGE INSTRUCTIONS GIVEN TO PT AND BROTHER. IVS REMOVED. KOBAN AND 4X4S APPLIED. CATH WAS INTACT. PT RESTING IN CHAIR W CALL LIGHT WITHIN REACH. VSS. WILL CONTINUE TO MONITOR.
[2020-06-14 13:57] LABS: POC Glucose,Bedside 216 (70-110)
== END 2020-06-14 12:07 | disposition home health service (06) | DRG 309 ==
LOC: ER 12:09 → 2ND 15:17
PROVIDERS: Admitting Provider Family Medicine; Emergency Provider Emergency Medicine; Visit Provider Family Medicine
DX: I48.91 Unspecified atrial fibrillation (principal); L97.919 Non-pressure chronic ulcer of unspecified part of right lower leg with unspecified severity; Z86.19 Personal history of other infectious and parasitic diseases; Z79.01 Long term (current) use of anticoagulants; Z79.84 Long term (current) use of oral hypoglycemic drugs; Z72.0 Tobacco use; I50.813 Acute on chronic right heart failure; I11.0 Hypertensive heart disease with heart failure; Z89.421 Acquired absence of other right toe(s); G89.29 Other chronic pain; R41.89 Other symptoms and signs involving cognitive functions and awareness; I69.319 Unspecified symptoms and signs involving cognitive functions following cerebral infarction; I83.018 Varicose veins of right lower extremity with ulcer other part of lower leg; I83.028 Varicose veins of left lower extremity with ulcer other part of lower leg; E11.65 Type 2 diabetes mellitus with hyperglycemia
CPT/HCPCS: 36415; 71045; 73610; 73630; 74177; 76705; 80048; 80053; 81001; 82803; 82962; 83605; 83880; 84484; 85025; 86328; 87040; 93005; 93306; 93923; 96365; 96366; 96367; 96375; 96376; 97116; 97162; 99284; Q9957; Q9967; U0003

== ENCOUNTER 2020-06-24 17:15 | Inpatient (IN) | payer MEDICARE, SELFPAY ==
[2020-06-24] VITALS (12 sets, daily range): BP systolic 127–162; BP diastolic 80–110; PULSE 76–134; RESP 16–22; TEMP 36.4–36.8; O2SAT 94–98; BMI 31.1; BMI 33.0; BMI 35.2
--- NOTE | 2020-06-24 17:16 | CT_ITS ---
PROCEDURE: CT HEAD/BRAIN WO CON CLINICAL INDICATION: confusion, vision trouble COMPARISON: No exams were available for comparison TECHNIQUE: Axial images obtained. All CT scans at the facility use one or more dose reduction, viz: automated exposure control, ma/kV adjustment per patient size (including targeted exams where dose is matched to indication, i.e. head), or iterative reconstruction technique. FINDINGS: No midline shift, mass effect, intracranial hemorrhage, hydrocephalus, or extra-axial fluid collection is evident. There is a large area of encephalomalacia involving the left posterior temporal and occipital lobe as well as the parietal occipital junction consistent with an old area of infarction in the posterior cerebral artery territory. There is generalized atrophy with hypoattenuation of the periventricular white matter consistent with microangiopathic changes.. The calvarium has an unremarkable appearance. No mastoid effusion. There is a 17 mm mucous retention cyst in the right maxillary sinus medially IMPRESSION: 1. No acute intracranial findings. 2. 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 Dictated by: Jaylen Escalera MD 06/25/2020 07:01 Jaylen Escalera MD in [facility] 06/25/2020 07:01
--- NOTE | 2020-06-24 17:16 | PC.NURSE ---
fsbs 114
--- NOTE | 2020-06-24 17:17 | PC.NURSE ---
rad notified of CT order ER at upon arrival of pt
--- NOTE | 2020-06-24 17:22 | XR_ITS ---
PROCEDURE: XR CHEST PORTABLE CLINICAL HISTORY: confusion Smoker COMPARISON: CR XR CHEST PORTABLE from 06/11/2020 FINDINGS: Cardiomegaly without failure. Chronic coarsening of the bronchovascular markings is noted. Patchy density is present in the right mid lung suggesting an area of infiltrate. Increased markings are present in the lower lobes which are probably chronic. There may be some atelectatic changes in the lung bases. Degenerative changes noted of the shoulders. IMPRESSION: Cardiomegaly with chronic changes in the right midlung infiltrate. Dictated by: Jaylen Escalera MD 06/24/2020 17:49 Jaylen Escalera MD in [facility] 06/24/2020 17:49
--- NOTE | 2020-06-24 17:22 | PC.NURSE ---
pt to Ct for stroke protocol
[2020-06-24 17:32] LABS: Basophils # 0.1 K/mm3 (0-0.2); Basophils % 0.9 % (0.1-2.0); Eosinophils # 0.2 K/mm3 (0.0-0.4); Eosinophils % 2.8 % (0.1-12.0); Hemoglobin 14.3 g/dL (14.1-18.0); Lymphocytes # 1.3 K/mm3 (0.7-4.5); Mean Corpuscular HGB Conc 31.8 g/dL (31.8-35.4); Mean Corpuscular Hemoglobin 29.7 pg (27.0-31.2); Mean Corpuscular Volume 93.3 fl (80-94); Mean Platelet Volume 7.7 fl (7.4-10.4); Monocytes # 0.6 K/mm3 (0.1-1.0); Neutrophils # 4.9 K/mm3 (1.8-7.8); Neutrophils % 69.3 % (37.0-80.0); Platelet Count 129 K/mm3 (142-424); Red Blood Count 4.83 M/mm3 (4.60-6.20); Red Cell Distribution Width 14.1 % (11.5-17.5); White Blood Count 7.1 K/mm3 (4.8-10.8)
[2020-06-24 17:36] LABS: Chloride 97 mmol/L (98-107); Sodium 134 mmol/L (136-145)
[2020-06-24 17:37] LABS: Potassium 4.3 mmoL/L (3.5-5.1)
--- NOTE | 2020-06-24 17:39 | ECG_ITS ---
APPROVED REPORT Exam: Resting ECG HR:118 bpm ECG Measurements Heart Rate 118 AXES QRSd 180 QRS 223 QT 350 T 32 QTc 490 Conclusion Undetermined rhythm Right bundle branch block Abnormal ECG Electronically signed by : Hammad Abarca, 06/29/2020 09:51:00
[2020-06-24 17:40] LABS: Alanine Aminotransferase 14 U/L (12-78); Albumin Level 4.2 g/dl (3.5-5.0); Alkaline Phosphatase 147 U/L (38-126); Anion Gap 11.3 mEq/L (5-15); Aspartate Amino Transferase 29 U/L (17-59); Bilirubin,Direct 0.5 mg/dl (0.0-0.4); Bilirubin,Indirect 0.7 mg/dL (0.0-0.9); Bilirubin,Total 1.2 mg/dl (0.2-1.3); Bilirubin,Unconjugated 0.7 mg/dL (0.0-1.1); Blood Urea Nitrogen 18 mg/dl (9-20); Calcium 9.5 mg/dl (8.4-10.2); Carbon Dioxide 30 mmol/L (22.0-30.0); Creatinine Clearance Estimated 113 mL/min (50-200); Estimated Glomerular Filt Rate 98 ml/min (>60); GFR (African American) 119 ML/MIN (>60); Glucose 131 mg/dl (74-100); Total Protein,Serum 7.6 g/dl (6.3-8.2)
--- NOTE | 2020-06-24 17:46 | HMH.EDGENADL ---
ED Disposition Clinical Impression: Rapid atrial fibrillation, Confusion Pneumonia Qualifiers: Pneumonia type: due to unspecified organism Laterality: right Lung location: middle lobe of lung Qualified Code(s): J18.9 - Pneumonia, unspecified organism Disposition: Admitted as Observation Condition on Discharge: Serious - Critical Care Critical Care Time: Yes Attestation: On , the high probability of a clinically significant, sudden or life threatening deterioration of the following system(s) required my full and direct attention, intervention and personal management. The time I documented below is in addition to time spent performing reported procedures but includes the following listed in this critical care notation. Total Critical Care Time: 30 Vital system(s) involved:: Circulatory Failure My critical care processes included: Assessment & monitoring of V/S, Initial and Re-exams, Data Review/Interpretation, Coordinating Care, Medication Orders and management, Documentation Medical Decision Making - Medical Records Medical records reviewed: Yes: I reviewed the patient's medical records. MR Comment: Patient admitted here 06/11/2020 through 06/14/2020 for atrial fibrillation with rapid ventricular response. Record indicates a history of 3 prior strokes. Noted to be a very poor historian able to provide very little history. Noted to be very noncompliant. Noted to have a prior past history of alcoholism. Suspected of having cirrhosis. - Jose Inquiry Pt receiving controlled substance: No Vital Signs: 06/24/20 17:15 06/24/20 17:59 06/24/20 19:16 Temperature 98.2 F Temperature Source Oral Pulse Rate [Right Radial] 134 H 134 H 111 H Respiratory Rate 18 18 Blood Pressure [Right Arm] 146/110 H 162/101 H 160/97 H Blood Pressure Mean [Right Arm] 122 121 118 Blood Pressure Source [Right Arm] Automatic Cuff Blood Pressure Position [Right Arm] Sitting Sitting Sitting 02 Sat by Pulse Oximetry 98 96 96 Oxygen Delivery Method Room Air Room Air Room Air Oxygen Flow Rate (LPM) 06/24/20 19:30 06/24/20 20:00 06/24/20 20:30 Temperature Temperature Source Pulse Rate [Right Radial] 128 H 113 H 101 H Respiratory Rate 22 18 17 Blood Pressure [Right Arm] 153/109 H 127/90 147/93 H Blood Pressure Mean [Right Arm] 123 102 111 Blood Pressure Source [Right Arm] Automatic Cuff Automatic Cuff Automatic Cuff Blood Pressure Position [Right Arm] Supine Supine Supine 02 Sat by Pulse Oximetry 95 94 L 95 Oxygen Delivery Method Room Air Room Air Nasal Cannula Oxygen Flow Rate (LPM) 2 06/24/20 21:00 06/24/20 21:30 Temperature Temperature Source Pulse Rate [Right Radial] 104 H 96 H Respiratory Rate 17 17 Blood Pressure [Right Arm] 144/98 H 147/96 H Blood Pressure Mean [Right Arm] 113 113 Blood Pressure Source [Right Arm] Automatic Cuff Automatic Cuff Blood Pressure Position [Right Arm] Supine Supine 02 Sat by Pulse Oximetry 96 97 Oxygen Delivery Method Room Air Room Air Oxygen Flow Rate (LPM) - Lab Data Lab results reviewed: Yes: I reviewed the patient's lab results. Lab Results 06/24/20 17:20: WBC 7.1, RBC 4.83, Hgb 14.3, Hct 45.0, MCV 93.3, MCH 29.7, MCHC 31.8, RDW 14.1, Plt Count 129 L, MPV 7.7, Neut % (Auto) 69.3, Lymph % (Auto) 19.0, [place] % (Auto) 8.0, Eos % (Auto) 2.8, Baso % (Auto) 0.9, Neut # (Auto) 4.9, Lymph # (Auto) 1.3, [place] # (Auto) 0.6, Eos # (Auto) 0.2, Baso # (Auto) 0.1 06/24/20 17:20: Sodium 134 L, Potassium 4.3, Chloride 97 L, Carbon Dioxide 30, Anion Gap 11.3, BUN 18, Creatinine 0.80, Estimated Creat Clear 113, Estimated GFR 98, Est GFR ( Amer) 119, Glucose 131 H, Calcium 9.5 06/24/20 17:20: Total Bilirubin 1.2, Direct Bilirubin 0.5 H, Conjugated Bilirubin 0.0, Indirect Bilirubin 0.7, Unconjugated Bilirubin 0.7, AST 29, ALT 14, Alkaline Phosphatase 147 H, Total Protein 7.6, Albumin 4.2 06/24/20 17:20: SARS-CoV-2 IgG Ab (Rapid) Negative, SARS-CoV-2 IgM Ab (Rapid) Negative 06/24/20 17:20: Digox
--- NOTE | 2020-06-24 18:08 | PC.NURSE ---
CAIO COLLIER viewing [facility] report at this time
[2020-06-24 18:16] LABS: Activated Partial Thrombo Time 27.5 seconds (23.6-34.0); INR 1.16 (0.9-1.1); Prothrombin Time 12.7 seconds (9.4-11.8)
[2020-06-24 18:23] LABS: Ammonia < 9 umol/L (9-30)
[2020-06-24 18:24] LABS: ABG Base Excess 4.3 mmol/L (-2.4-2.3); ABG HCO3 28.9 mmhg (22.0-26.0); ABG Oxygen Saturation 94 % (90-100); ABG PCO2 46.5 mmhg (35.0-45.0); ABG PH 7.41 mmol/L (7.35-7.45); ABG PO2 69.5 mmhg (80-100); ABG TCO2 30.3 mmhg (23-27)
[2020-06-24 18:25] LABS: Allen's Test Acceptable; Oxygen 21% RA %; Source Right Radial
--- NOTE | 2020-06-24 18:54 | PC.NURSE ---
notified ER MD of radiologist reading of chest xray of infiltrate. ER MD gave verbal orders for blood cultures and lactic acid on pt, asked ER MD about antibiotic orders, ER MD states he needs go over pts chart again and then he will place orders.
--- NOTE | 2020-06-24 19:00 | PC.NURSE ---
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
--- NOTE | 2020-06-24 19:02 | PC.NURSE ---
per anival in pharmacy give pt a loading dose of Vancomycin 2g IV per IV and then a maintenance dose of Vancomycin 1.5g every 12 hours. notified ER MD of dosing recommended by pharmacy
--- NOTE | 2020-06-24 19:15 | PC.NURSE ---
shift change report given to anandrn
[2020-06-24 19:22] LABS: Lactic Acid 0.9 mmol/L (0.7-2.1)
[2020-06-24 20:55] LABS: Coronavirus 19 IgG Antibody Negative (Negative); Coronavirus 19 IgM Antibody Negative (Negative)
--- NOTE | 2020-06-24 21:54 | PC.NURSE ---
Cardizem drip started at 5ml/min at 1954 Increased to 10ml/min at 2154
--- NOTE | 2020-06-24 22:13 | PC.NURSE ---
patient up to floor via stretcher.
[2020-06-25] VITALS (26 sets, daily range): BP systolic 108–157; BP diastolic 67–98; PULSE 50–118; RESP 16–20; TEMP 36.4–36.7; O2SAT 90–95; BMI 35.2
--- NOTE | 2020-06-25 00:20 | PC.NURSE ---
He is alert to name and birthday. Confusion noted. Per medical record, the ambulance was called for new onset AMS. He is a poor historian. Unaware of any of his medical hx, surgical hx, and medications. Medical hx pulled per medical record. Medications will need to be verified with pharmacy. Written on kardex that meds still need to be verified. He is disheveled. States he lives alone but cannot state if he lives in an apartment or in a house. Attempted to contact Leighann Olivier at [phone] on 06/24/20 to see if pt has a POA so that consent can be obtained to get pictures of his legs but there was no answer. Also written on kardex that pictures are needed. Severe dry, flaky skin noted on LLE and right toes. RLE has a DSG on it that is C/D/I. Will obtain pictures as soon as consent is obtained. He continues on RA. Controlled afib on telemetry with a BBB. He states he is able to read and write a little bit. His skin is starkey in color and abdominal distention noted.
--- NOTE | 2020-06-25 01:27 | PC.NURSE ---
Mental status reassessed he was able to state his name, the year, and where he was but could not state his birthday. He stated too much thinking. Reassessed 15 mins later and he could answer all of the above except for his birthday and the year. DSG on RLE removed. Skin is intact but discolored, dry, and flaky. Discoloration, dryness, and flaky skin begins 9 cm below the patella on his RLE and extends to his toes and begins 13cm below his right knee and extends to his toes. RLE redressed.
--- NOTE | 2020-06-25 02:26 | PC.NURSE ---
He is A&Ox4 at this time. He is slow to respond to questions and has to be encouraged to answer all questions. He gave verbal consent for pictures.
[2020-06-25 05:23] LABS: POC Glucose,Bedside 119 (70-110)
--- NOTE | 2020-06-25 07:31 | P.CONPHA_ITS ---
[facility] Pharmacy VTE Monitoring - Patient Demographics Admission date: 06/25/20 Report Date: 06/25/20 Time: 07:31 Allergies/Adverse Reactions: Patient Allergies No Known Allergies Allergy (Verified 06/25/20 00:02) Height: 1.83 m Weight: 118.189 kg Patient Problems: Current Active Problems Pneumonia (Acute) Rapid atrial fibrillation (Acute) Confusion (Acute) - VTE Risk Labs: VTE Related Lab Results Hgb 14.3 g/dL (14.1-18.0) 06/24/20 17:20 Hct 45.0 % (42.0-52.0) 06/24/20 17:20 Plt Count 129 K/mm3 (142-424) L 06/24/20 17:20 PT 12.7 seconds (9.4-11.8) H 06/24/20 17:54 INR 1.16 (0.9-1.1) H 06/24/20 17:54 APTT 27.5 seconds (23.6-34.0) 06/24/20 17:54 BUN 18 mg/dl (9-20) 06/24/20 17:20 Creatinine 0.80 mg/dl (0.66-1.25) 06/24/20 17:20 Estimated Creat Clear 113 mL/min (50-200) 06/24/20 17:20 Was VTE Risk Assessment Performed: Yes VTE Score: 5 VTE Risk Level: Low Risk Clinical Trial Participant: No - Prophylaxis VTE Prophylaxis Ordered?: Yes Types of VTE Prophylaxis: TEDS Knee High
--- NOTE | 2020-06-25 07:39 | HMH.PHAINT ---
HOME MEDICATION RECONCILIATION COMPLETED USING LIST FROM [facility]
--- NOTE | 2020-06-25 08:30 | P.CONPHA_ITS ---
- Pharmacy Consult Date: 06/25/20 Time: 08:30 Referring provider: DR. TAMAYO Reason for Consult:: VANCOMYCIN DOSING Allergies and ADEs:: Allergies Allergy/AdvReac Type Severity Reaction Status Date / Time No Known Allergies Allergy Verified 06/25/20 00:02 Home Medications:: Home Medications Medication Instructions Recorded Confirmed Type Albuterol Sulfate [Proair Hfa] 1 - 2 puffs IH Q4HP PRN #1 inh 06/14/20 06/24/20 Rx Apixaban [Eliquis] 5 mg PO BID #60 tab 06/14/20 06/24/20 Rx Atorvastatin Calcium [Lipitor 40mg 40 mg PO HS #30 tab 06/14/20 06/24/20 Rx Tablet*] Clopidogrel Bisulfate [Clopidogrel 75 mg PO DAILY #30 tab 06/14/20 06/24/20 Rx 75mg Tab] Digoxin [Digoxin 0.125mg Tablet] 125 mcg PO DAILY 06/24/20 06/24/20 History Glycopyrrolate/Formoterol Fum 2 puffs IH BID 06/24/20 06/25/20 History [Bevespi Aerosphere Inhaler] Metformin HCl 500 mg PO BID 06/24/20 06/24/20 History Metoprolol Succinate [Toprol XL 150 mg PO DAILY 06/24/20 06/24/20 History 100mg tablet] Spironolactone [Spironolactone 25 mg PO DAILY 06/24/20 06/24/20 History 25mg Tablet] Torsemide [Demadex 20mg tablet] 20 mg PO DAILY 06/24/20 06/24/20 History lisinopriL [Zestril 5mg 5 mg PO DAILY 06/24/20 06/24/20 History Tablet] Height: 1.83 m Weight: 118.189 kg Laboratory Results:: Laboratory Results - last 24 hr 06/24/20 17:20: WBC 7.1, RBC 4.83, Hgb 14.3, Hct 45.0, MCV 93.3, MCH 29.7, MCHC 31.8, RDW 14.1, Plt Count 129 L, MPV 7.7, Neut % (Auto) 69.3, Lymph % (Auto) 19.0, [place] % (Auto) 8.0, Eos % (Auto) 2.8, Baso % (Auto) 0.9, Neut # (Auto) 4.9, Lymph # (Auto) 1.3, [place] # (Auto) 0.6, Eos # (Auto) 0.2, Baso # (Auto) 0.1 06/24/20 17:20: Sodium 134 L, Potassium 4.3, Chloride 97 L, Carbon Dioxide 30, Anion Gap 11.3, BUN 18, Creatinine 0.80, Estimated Creat Clear 113, Estimated GFR 98, Est GFR ( Amer) 119, Glucose 131 H, Calcium 9.5 06/24/20 17:20: Total Bilirubin 1.2, Direct Bilirubin 0.5 H, Conjugated Bilirubin 0.0, Indirect Bilirubin 0.7, Unconjugated Bilirubin 0.7, AST 29, ALT 14, Alkaline Phosphatase 147 H, Total Protein 7.6, Albumin 4.2 06/24/20 17:20: SARS-CoV-2 IgG Ab (Rapid) Negative, SARS-CoV-2 IgM Ab (Rapid) Negative 06/24/20 17:20: Digoxin 0.40 06/24/20 17:53: Specimen Source Right radial, O2 % 21% ra, ABG pH 7.41, ABG pCO2 46.5 H, ABG pO2 69.5 L, ABG HCO3 28.9 H, ABG Total CO2 30.3 H, ABG O2 Saturation 94, ABG Base Excess 4.3 H, Jaylen Test Acceptable 06/24/20 17:54: PT 12.7 H, INR 1.16 H, APTT 27.5 06/24/20 18:07: Ammonia < 9 L 06/24/20 19:05: Lactate 0.9 06/25/20 04:58: POC Glucose 119 H Medical History: Reports:: Atrial Fibrillation, Congestive Heart Failure, Cerebrovascular Accident, Diabetes Mellitus Type 2, Hyperlipidemia, Hypertension, Peripheral Artery Disease, Peripheral Vascular Disease Denies:: Cancer, Diabetes Mellitus Type 1, MRSA Assessment and Plan - Assessment and plan all Dx Assessment and Plan for all problems:: BASED ON PATIENT FACTORS, RECOMMEND INITIATING VANCOMYCIN AT 2,250MG IV EVERY 12 HOURS. PHARMACY WILL OBTAIN TROUGH LEVEL AND ADJUST DOSE APPROPRIATE. PATIENT RECEIVED 2GM IN ER AND 1,500MG AT 0600 THIS MORNING. -WILLY BEARDEN PHARMD
--- NOTE | 2020-06-25 09:05 | PC.NURSE ---
Cardizem gtt decreased to 5mls/hr @ 0905; V/S as documented
--- NOTE | 2020-06-25 09:29 | HMH.HP ---
*Admission Date: 06/25/20 <Dunia Nolan - 06/25/20 09:37> *Chief complaint: AMS <Dunia Nolan - 06/25/20 13:33> *History of present illness: Mr. Pickard is a 64-year-old male with a history of atrial fibrillation, CVA, type 2 diabetes mellitus, hyperlipidemia, hypertension, peripheral vascular disease who was recently hospitalized at [facility] from 06/11/2020 to 06/14/2020 for atrial fibrillation with a rapid ventricular response. He was sent from home by Home Health due to his confusion which they felt was new. Patient is felt to be very noncompliant and does not know if he was taking his meds since the discharge. He does have a prior history of alcoholism but states he has not had a drink in 2 years. With evaluation in the emergency room CT of the head showed no acute intracranial findings and old left posterior cerebral artery distribution infarction ; Chest x-ray showed cardiomegaly with chronic changes in the right midlung infiltrate. Laboratory results showed a low platelet count at 129 and otherwise normal .ABG showed a pH of 7.41, PCO2 of 46.5, PO2 of 69.5 and a bicarb of 28.9. Blood chemistries were satisfactory. He does have some elevation in liver function studies with alkaline phosphotase of 147. Lactate was normal. Patient was noted to be a poor historian and most information is obtained from records and previous assessments. Upon arrival to the emergency room he was disoriented and unable to give any additional history. The patient did complain of visual disturbance. EMS noted pupillary inequality as well. This a.m. at time of exam patient has difficulty with answering questions. He does not remember yesterday or why he is here. He does deny chest pain and shortness of breath. He continues on a Cardizem drip for controlled ventricular response. <Dunia Nolan - 06/25/20 13:33> [facility] History Medical History: Reports:: Atrial Fibrillation, Congestive Heart Failure, Cerebrovascular Accident, Diabetes Mellitus Type 2, Hyperlipidemia, Hypertension, Peripheral Artery Disease, Peripheral Vascular Disease Denies:: Cancer, Diabetes Mellitus Type 1, MRSA <Dunia Nolan - 06/25/20 09:37> *Have you ever received a pneumonia vaccine?: No (Pt with confusion, unable to answer.) <Dunia Nolan 06/25/20 09:37> *Have you received a flu vaccine this season?: No (Pt with confusion, unable to answer.) <Dunia Nolan 06/25/20 09:37> Other Medical History: Reports: Arthritis <Dunia Nolan 06/25/20 09:37> Laterality Cases: Right: Total Hip Replacement <AnDunia 06/25/20 09:37> Amputation: No <AnDunia 06/25/20 09:37> - *Social History Smoking Status: Current every day smoker <AnDunia 06/25/20 09:37> Tobacco Type: cigarettes <AnDunia 06/25/20 09:37> # Packs/Day (cigarettes): 1 <AnDunia 06/25/20 09:37> Alcohol Intake: former <AnDunia 06/25/20 09:37> Alcohol Intake Frequency:: other <AnDunia 06/25/20 09:37> *Occupational Status:: unemployed <Dunia Nolan 06/25/20 09:37> Household Members: none <Dunia Nolan 06/25/20 09:37> *Travel in the last 8 weeks: None <NolanDunia 06/25/20 09:37> Family Hx:: Unable to obtain <AnDunia 06/25/20 09:37> Review of Systems - Constitutional Denies fever(s) <Dunia Nolan 06/25/20 13:33> - Eyes Reports change in vision <Dunia Nolan 06/25/20 13:33> - ENT Denies ear pain, Denies sore throat <NolanDunia [place] 06/25/20 13:33> - *Cardiovascular Denies chest pain <Dunia Nolan 06/25/20 13:33> - *Respiratory Reports cough, Denies chest congestion, Denies shortness of breath <Dunia Nolan 06/25/20 13:33> - *Gastrointestinal Denies abdominal pain, Denies nausea <Dunia Nolan 06/25/20 13:33> - *Genitourinary Denies difficulty urinating <Dunia Nolan - 06/25/20 13:33> - *Musculoskeletal Reports joint pain (all over) <Dunia Nolan 06/25/20 13:33> - Integumentary
[2020-06-25 11:51] LABS: POC Glucose,Bedside 147 (70-110)
--- NOTE | 2020-06-25 13:46 | HMH.CNCARD ---
History of Present Illness Consult date: 06/25/20 Requesting physician: Gamal Saleem Consult reason: atrial fibrillation Chief complaint: afib History of present illness: This is a 64-year-old white gentleman who was admitted to the hospital due to confusion. The patient was previously admitted to [facility] from June 11, 2020 to June 14, 2020 for atrial fibrillation with rapid ventricular response. The patient was sent home and had been doing well according to him and then he was brought back into the emergency department due to confusion that was reported by home health. When he was picked up by EMS they did notice people inequality and he was having some visual disturbances. He was disoriented and unable to give them any information. The patient does have a history of atrial fibrillation, CVA, type 2 diabetes, hypertension, hyperlipidemia and peripheral arterial disease. The patient is very noncompliant with his medications and we are unsure if he has been taking any of his medicines since discharge. He does have a prior history of alcoholism but states he has not had a drink in 2 years. He is a very poor historian and cannot provide me with much information. Most of his information is coming from previous hospital records. When I asked the patient why he was admitted to the hospital he cannot tell me. He does not remember having any issues with confusion yesterday and does not know why he is in the hospital. Today he tells me that he denies any chest pain, pressure, shortness of breath or edema. He denies any fever, chills, nausea, vomiting, diarrhea, PND or orthopnea. He is alert and oriented x3 today and can answer most of my questions except for questions about his health history, he is just really unsure. Upon arrival at the emergency department here at [facility]. He was found to be in atrial fibrillation with a rapid rate. He was started on a diltiazem drip. He is now rate controlled. He denies any palpitations or racing of the heart today. [facility] History I have reviewed the patient's past medical history: Yes Medical History: Reports:: Atrial Fibrillation, Congestive Heart Failure, Cerebrovascular Accident, Diabetes Mellitus Type 2, Hyperlipidemia, Hypertension, Peripheral Artery Disease, Peripheral Vascular Disease Denies:: Cancer, Diabetes Mellitus Type 1, MRSA *Have you ever received a pneumonia vaccine?: No (Pt with confusion, unable to answer.) *Have you received a flu vaccine this season?: No (Pt with confusion, unable to answer.) Other Medical History: Reports: Arthritis Laterality Cases: Right: Total Hip Replacement Amputation: No - *Social History Smoking Status: Current every day smoker Tobacco Type: cigarettes # Packs/Day (cigarettes): 1 Alcohol Intake: former Alcohol Intake Frequency:: other *Occupational Status:: unemployed Household Members: none *Travel in the last 8 weeks: None Family Hx:: Unable to obtain Meds Home Medications Medication Instructions Recorded Confirmed Type Albuterol Sulfate [Proair Hfa] 1 - 2 puffs IH Q4HP PRN #1 inh 06/14/20 06/25/20 Rx Apixaban [Eliquis] 5 mg PO BID #60 tab 06/14/20 06/25/20 Rx Atorvastatin Calcium [Lipitor 40mg 40 mg PO HS #30 tab 06/14/20 06/25/20 Rx Tablet*] Clopidogrel Bisulfate [Clopidogrel 75 mg PO DAILY #30 tab 06/14/20 06/25/20 Rx 75mg Tab] Digoxin [Digoxin 0.125mg Tablet] 125 mcg PO DAILY 06/24/20 06/25/20 History Glycopyrrolate/Formoterol Fum 2 puffs IH BID 06/24/20 06/25/20 History [Bevespi Aerosphere Inhaler] Metformin HCl 500 mg PO BID 06/24/20 06/25/20 History Metoprolol Succinate [Toprol XL 150 mg PO DAILY 06/24/20 06/25/20 History 100mg tablet] Spironolactone [Spironolactone 25 mg PO DAILY 06/24/20 06/25/20 History 25mg Tablet] Torsemide [Demadex 20mg tablet] 20 mg PO DAILY 06/24/20 06/25/20 History lisinopriL [Zestril 5mg 5 mg PO DAILY 06/24/20 06/25/20 History Tablet
--- NOTE | 2020-06-25 14:27 | HMH.PTWOUND ---
Rehab Inpt Wound Evaluation Rehab IP Wound Evaluation Start: 06/25/20 13:28 Freq: ONCE Status: Active Protocol: Document 06/25/20 14:24 PWLIBAN (Rec: 06/25/20 14:26 PWILLIMARIA E [id number]) Rehab PT Wound Assessment Patient Status Premedicated Prior to Dressing Change No Subjective Subjective Pt reports he thinks his medicine has been stolen. Pt admitted to [facility] thru ER. Physical onservation of BLE shows no open wounds - dry skin and hyperkeratosis but no open wounds. Plan/Recommendation Comment Nsg to apply eucerin and/or aquafore then kerlix to allow softening of hyperkeratotic tissue. Eval Complexity Eval Charge Codes 88333 - Low Complexity PHYSICIAN CERTIFICATION: I certify the specified therapy services for Abrahan Pickard are required, authorized, and reviewed every 30 days.
[2020-06-25 14:43] LABS: Troponin I < 0.01 ng/ml (0.00-0.034)
--- NOTE | 2020-06-25 15:17 | SW/DCPLANNER ---
PER DR TAMAYO AFTER MAKING ROUNDS THIS MORNING HE STATED PATIENT APPEARS TO NEED PLACEMENT... MR VELAZQUEZ WAS SET UP WITH [facility] HIS LAST ADMISSION WITH [employer]... WE HAD THE WRONG PHONE NUMBER FOR HIM AND I CALLED THE LIASION WITH [employer] TO GIVE ME A CORRECT NUMBER, THE FRIEND THAT IS LISTED STATED SHE MAKES NO DECISIONS FOR HIM, SHE STATED SHE USE TO LIVE CLOSE TO HIM AND NOW SHE HAS MOVED SHE GAVE ME HIS BROTHERS NUMBER, ASHLEY VELAZQUEZ ... I CAN NOT GET HIM AND WAS NOT ABLE TO LEAVE A MESSAGE.. PATIENT WAS VERY UPSET AND CONFUSED THIS AFTERNOON THINKING WE STOLE HIS MEDICINE I HAVE MADE MULTIPLE CALLS TO THIS NUMBER AND NO ANSWER... WILL TRY AGAIN IN THE AM...
[2020-06-25 16:54] LABS: POC Glucose,Bedside 101 (70-110)
--- NOTE | 2020-06-25 17:25 | PC.NURSE ---
Pt is alert to self and birthday. He had a period of aggression where he accused staff of stealing this home meds and wanted to leave AMA. I explained to him that he did not have any home medications on his person on admission. I called ER and [facility] to verify. Both stated there were no meds with patient. Pt is currently agreeable to staying. telecom coordinator and supervisor hide house notified. His pupils are unequal. Rt pupil sluggish to light and left pupil more dilated and non reactive. He was given PO cardizem at 1430 and gtt was turned off at 1530. He is controlled afib on telemetry. He has utiized a urinal at bedside. Urine was dark teddy at beginning of shift, it is now light teddy and clear. he has had 950 mls out thus far. Last BM 06/25/20. BLE ar dry and scaly w/erythema. Per Physical Therapy we can put some barrier cream w/kerlix on them. Pt has refused at this time but I will attempt again. IV to LAC flushes easily and is SL. IV to RAC is patent and infusing ns @50. When asked about pain he says he hurts all over but no more than usual. Tylenol offered but pt has refused. Pt is currently resting in bed w/his eyes closed. Will continue to monitor.
--- NOTE | 2020-06-25 19:20 | PC.NURSE ---
report given to sarah
[2020-06-25 21:57] LABS: POC Glucose,Bedside 154 (70-110)
[2020-06-26] VITALS (12 sets, daily range): BP systolic 102–133; BP diastolic 48–76; PULSE 50–72; RESP 16–19; TEMP 36.3–36.8; O2SAT 91–97; BMI 35.2
--- NOTE | 2020-06-26 04:00 | PC.NURSE ---
Pt is A&O to person & place. Pt didn't remember he is currently being treated for pneumonia and the recent afib with rvr. POC reviewed with pt, he states alright, but I'm going home today. So do what you gotta do while I'm here . Pt has been pleasantly confused regarding his situation this shift. Scattered rhonchi noted on lung auscultation. O2 sat 95-97% on room air. Pt denies any SOA or productive with cough, although cough sounds wet. Dry, scaly, and cool BLE. Peripheral pulses 1-2+. No edema noted. 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 Afib with BBB & at times prolonged QT. HR <100 noted t/o shift. ABD is round, soft, non-tender with active BS. Pt denies any N/V/D. Pt c/o generalized pain however refused Tylenol that was offered, stating I taken bottles of it and it never worked . Call light within reach, will continue to monitor.
[2020-06-26 06:19] LABS: POC Glucose,Bedside 129 (70-110)
[2020-06-26 06:41] LABS: Chloride 98 mmol/L (98-107)
[2020-06-26 06:42] LABS: Potassium 4.1 mmoL/L (3.5-5.1); Sodium 134 mmol/L (136-145)
[2020-06-26 06:45] LABS: Anion Gap 11.1 mEq/L (5-15); Blood Urea Nitrogen 18 mg/dl (9-20); Calcium 9.1 mg/dl (8.4-10.2); Carbon Dioxide 29 mmol/L (22.0-30.0); Creatinine Clearance Estimated 128 mL/min (50-200); Estimated Glomerular Filt Rate 76 ml/min (>60); GFR (African American) 92 ML/MIN (>60); Glucose 148 mg/dl (74-100)
[2020-06-26 07:16] LABS: Thyroid Stimulating Hormone 1.82 uIU/mL (0.465-4.68)
--- NOTE | 2020-06-26 08:35 | XR_ITS ---
PROCEDURE: XR CHEST PORTABLE CLINICAL HISTORY: f/u pneumonia COMPARISON: CR XR CHEST PORTABLE from 06/11/2020 CR XR CHEST PORTABLE from 06/24/2020 FINDINGS: There is cardiomegaly without failure. No lobar consolidation or collapse is evident. The lungs are clear without infiltrates, suspicious nodules, or pleural effusions. No acute bony abnormalities. IMPRESSION: Cardiomegaly. No change with no acute finding. Dictated by: Jaylen Escalera MD 06/26/2020 13:17 Jaylen Escalera MD in [facility] 06/26/2020 13:17
--- NOTE | 2020-06-26 09:04 | HMH.ACPN2 ---
<Bhargavi Stewart - Last Filed: 06/26/20 09:04> Internal Medicine - PN: Subj *Date: 06/26/20 *Time: 08:05 Interval history: Pt is resting quietly in bed. He denies any pain, chest pain, or cough. He voices that he would like to go home and is making arrangements for his brother to come get him. Care management has been unsuccessful in attempts to contact his brother. Exam Vital signs and Labs for Last 24 Hours: Temp Pulse Resp BP Pulse Ox 98.2 F 67 18 133/76 91 L 06/26/20 04:00 06/26/20 09:00 06/26/20 04:00 06/26/20 04:00 06/26/20 06:04 Laboratory Results - last 24 hr 06/25/20 11:39: POC Glucose 147 H 06/25/20 14:10: Troponin I < 0.01 06/25/20 16:47: POC Glucose 101 06/25/20 21:42: POC Glucose 154 H 06/26/20 05:45: Sodium 134 L, Potassium 4.1, Chloride 98, Carbon Dioxide 29, Anion Gap 11.1, BUN 18, Creatinine 1.00 D, Estimated Creat Clear 128, Estimated GFR 76, Est GFR ( Amer) 92 D, Glucose 148 H, Calcium 9.1, TSH 1.82 06/26/20 05:48: POC Glucose 129 H I & O for Last 24 hours: Intake & Output 06/23/20 06/24/20 06/25/20 06/26/20 11:59 11:59 11:59 11:59 Intake Total 2620 / 2620 1095 / 1095 Output Total 1200 / 1200 2875 / 2875 Balance 1420 / 1420 -1780 / -1780 Weight 260 lb 9 oz 260 lb 6.4 oz - Constitutional no acute distress - *Routine HEENT Exam Head: Present: normocephalic ENT: Present: mucous membranes moist - *Routine Respiratory Exam Comments: generally diminished right lung avila with wheezes on left - *Routine Cardiovascular Exam Present: irregular rhythm - *Routine Abdominal Exam Present: soft, normoactive bowel sounds. Absent: tenderness, distended, guarding, firm, rigid - *Routine Extremities Exam Absent: calf tenderness Comments: BLE's cool to the touch and with stasis changes - *Routine Neurological Exam Present: alert, normal speech oriented to person and place Assessment and Plan (1) AMS (altered mental status) Status: Acute Category: Medical Code(s): R41.82 - Altered mental status, unspecified (2) Stasis dermatitis of both legs Status: Acute Category: Medical Code(s): I87.2 - Venous insufficiency (chronic) (peripheral) (3) Pneumonia Status: Acute Qualifiers: Pneumonia type: due to unspecified organism Laterality: right Lung location: middle lobe of lung Qualified Code(s): J18.9 - Pneumonia, unspecified organism Category: Medical Code(s): J18.9 - Pneumonia, unspecified organism (4) Rapid atrial fibrillation Status: Acute Category: Medical Code(s): I48.91 - Unspecified atrial fibrillation (5) Cigarette smoker Status: Chronic Category: Social Hx Code(s): F17.210 - Nicotine dependence, cigarettes, uncomplicated (6) Cognitive impairment Status: Acute Category: Medical Code(s): R41.89 - Other symptoms and signs involving cognitive functions and awareness (7) Former consumption of alcohol Status: Chronic Category: Social Hx Code(s): Z87.898 - Personal history of other specified conditions (8) HTN (hypertension) Status: Chronic Category: Medical Code(s): I10 - Essential (primary) hypertension (9) HLD (hyperlipidemia) Status: Chronic Category: Medical Code(s): E78.5 - Hyperlipidemia, unspecified (10) Diabetes mellitus with hyperglycemia Status: Chronic Qualifiers: Diabetes mellitus type: type 2 Diabetes mellitus terminal block assembler insulin use: without terminal block assembler use Qualified Code(s): E11.65 - Type 2 diabetes mellitus with hyperglycemia Category: Medical Code(s): E11.65 - Type 2 diabetes mellitus with hyperglycemia (11) Peripheral arterial disease Status: Chronic Category: Medical Code(s): I73.9 - Peripheral vascular disease, unspecified <Gamal Saleem - Last Filed: 06/26/20 14:00> Internal Medicine - PN: Subj *Date: 06/26/20 *Time: 13:57 Exam Vital signs and Labs for Last 24 Hours: Temp Pulse Resp BP Pulse Ox 97.6 F 67 1
--- NOTE | 2020-06-26 10:34 | HMH.PNCARD ---
Subjective Date: 06/26/20 Time: 10:25 Principal diagnosis: afib Interval history: This is a 64-year-old white gentleman who was admitted to the hospital due to confusion. He has chronic atrial fibrillation and his heart rate was elevated. The patient was started on a diltiazem drip and his heart rate did improve. He has since been converted to oral diltiazem ER. The patient is very noncompliant with his medications at home and we are very unsure and unclear whether or not he was taking his medications once he got home. He is really unable to provide me with any of his history even still today and he is adamant that he is going home today and his brother is coming to get him. He denies any chest pain or pressure this morning. He denies any shortness of breath or edema. He denies any fever, chills, nausea, vomiting, diarrhea, PND or orthopnea. He remains alert and oriented x3 today although he does have issues answering any questions about his health history. Exam Vital signs and Labs for Last 24 Hours: Temp Pulse Resp BP Pulse Ox 97.6 F 67 16 117/48 L 95 06/26/20 08:00 06/26/20 09:55 06/26/20 08:00 06/26/20 08:00 06/26/20 08:00 Laboratory Results - last 24 hr 06/25/20 11:39: POC Glucose 147 H 06/25/20 14:10: Troponin I < 0.01 06/25/20 16:47: POC Glucose 101 06/25/20 21:42: POC Glucose 154 H 06/26/20 05:45: Sodium 134 L, Potassium 4.1, Chloride 98, Carbon Dioxide 29, Anion Gap 11.1, BUN 18, Creatinine 1.00 D, Estimated Creat Clear 128, Estimated GFR 76, Est GFR ( Amer) 92 D, Glucose 148 H, Calcium 9.1, TSH 1.82 06/26/20 05:48: POC Glucose 129 H I & O for Last 24 hours: Intake & Output 06/23/20 06/24/20 06/25/20 06/26/20 23:59 23:59 23:59 23:59 Intake Total 1425 / 1445 1950 / 2290 700 / 700 Output Total 3425 / 3575 650 / 650 Balance 1425 / 1445 -1475 / -1285 50 / 50 Weight 259 lb 8 oz 260 lb 2.327 oz 260 lb 6.4 oz Narrative: Telemetry strip shows atrial fibrillation with a rate of 67. - Constitutional no acute distress, obese - *Routine HEENT Exam Head: Present: normocephalic, atraumatic Eye: Present: EOMI, PERRL ENT: Present: mucous membranes moist - *Routine Neck Exam Present: supple, full ROM, normal carotid upstroke. Absent: JVD, carotid bruit, lymphadenopathy - *Routine Respiratory Exam Present: decreased breath sounds, wheezes (Expiratory wheezing noted throughout) - *Routine Cardiovascular Exam Present: Normal S1, Normal S2, irregularly irregular. Absent: murmur - *Routine Abdominal Exam Present: soft, normoactive bowel sounds. Absent: tenderness, distended - *Routine Extremities Exam Present: full ROM, pulses intact. Absent: cyanosis, clubbing, edema - *Routine Skin Exam Present: intact, warm (Except his lower extremities are both cool), cracked (Bilateral lower extremities with chronic stasis changes). Absent: rash - *Routine Neurological Exam Present: alert, oriented X3, CN II-XII intact. Absent: sensory deficit, motor deficit Progress Note: A&P (1) Atrial fibrillation Status: Chronic (2) Rapid atrial fibrillation Status: Resolved (3) Pneumonia Status: Acute (4) AMS (altered mental status) Status: Acute (5) Stasis dermatitis of both legs Status: Acute (6) Cigarette smoker Status: Chronic (7) Cognitive impairment Status: Acute (8) Former consumption of alcohol Status: Chronic (9) HTN (hypertension) Status: Chronic (10) HLD (hyperlipidemia) Status: Chronic (11) Diabetes mellitus with hyperglycemia Status: Chronic (12) Peripheral arterial disease Status: Chronic Assessment and Plan for All Diagnoses:: Plan: 1. The patient was admitted to the hospital secondary to confusion. He was found to have hospital-acquired pneumonia. He is being treated with antibiotics per his primary care provider. Will defer. 2. The patient was also found to be in atrial fibrillation with RVR. He is now rate co
--- NOTE | 2020-06-26 11:04 | PC.NURSE ---
pt ambulated in the room and is now sitting in the chair. PT @ BS. Gait is steady. No issues noted.
--- NOTE | 2020-06-26 11:16 | HMH.PTEV ---
Physical Therapy Evaluation Rehab PT IP Evaluation Start: 06/26/20 10:05 Freq: ONCE Status: Active Protocol: Document 06/26/20 11:13 PHORBRANDON (Rec: 06/26/20 11:16 PHORNE [id number]) Subjective/History History History 64 yowm adm to [facility] with AMS and possible PNA. He reports he lives alone on a trailer and has 1 step to enter the home. He reports being independent with all mobility prior to adm. Subjective Subjective Currently he has no c/o. Rehab PT IP Eval Objective Appearance Patient Behavior Appropriate Patient Orientation Person,Place,Time Difficulty following instructions none Speech Pattern Clear Ambulation Patient Able to Ambulate Yes Ambulation Observation IP General Gait Pattern Observation Wide Based Gait Ambulation Distance (feet) 30 Ambulation Assistive Device None Ambulation Ability Supervision/Stand by Balance Ability to Arise Able, uses arms to help Sitting Balance Steady, safe Standing Balance Steady, wide stance Dynamic Sitting Balance Ability Good Dynamic Standing Balance Ability Fair Transfers Bed Transfer Ability Supervision/Stand by Chair Transfer Ability Supervision/Stand by Sit to Stand Bed Transfer Ability Supervision/Stand by Sit to Stand Chair Transfer Ability Supervision/Stand by ROM All Extremities PT ROM Status WFL MMT All Extremities PT MMT WFL Rehab PT IP prob,goals,plan Problems Date of Evaluation: 06/26/20 Discharge Plan PT Discharge Plan Pt is appropriate to return home once medically stable as far as physical ability is concerned. He appears to be at baseline for all transfers and mobility at this time. G -code Required No Eval Complexity Eval Charge Codes 30023 - Moderate Complexity PHYSICIAN CERTIFICATION: I certify the specified therapy services for Abrahan Pickard are required, authorized, and reviewed every 30 days.
[2020-06-26 11:47] LABS: POC Glucose,Bedside 188 (70-110)
--- NOTE | 2020-06-26 11:50 | SW/DCPLANNER ---
I have spoke with this patient today regarding discharge plans. Patient stated that he resides at home, in a small trailer and does well at home alone. Patient has a brother (Ronni [phone]) that is involved. PT did evaluate this patient today and stated that patient is independent with everything and can return home. Patient does use [facility] home health services and will resume home health at time of discharge. I have spoke with Ronni today and he stated he will transport patient home once he is medically stable for discharge. Patient could be ready for discharge tomorrow. I will continue to follow up with patient and MD.
[2020-06-26 17:08] LABS: POC Glucose,Bedside 163 (70-110)
--- NOTE | 2020-06-26 18:33 | PC.NURSE ---
spoke with suzy lundberg in pharmacy stated to hold vancomycin dose and he would retime when it was to be given.
--- NOTE | 2020-06-26 18:53 | PC.NURSE ---
Pt has been stable this shift. Has gotten OOB and to the chair for most of the day. Did really well with PT this morning. Got back to bed for me without assistance. He reported several times today that he was going to sign himself out AMA today. His family never came to the hospital. He has been pleasant but adamant that he go home. BBB noted on tele with multiple p waves per QRS. Afib also noted @ times. No other issues noted.
[2020-06-26 20:51] LABS: POC Glucose,Bedside 187 (70-110)
[2020-06-27] VITALS (7 sets, daily range): BP systolic 116–132; BP diastolic 66–71; PULSE 64–84; RESP 16–18; TEMP 36.6–36.8; O2SAT 94–95; BMI 35.5
--- NOTE | 2020-06-27 05:29 | PC.NURSE ---
Pt is A&O to person & place and most of current situation. POC reviewed with pt, stated his understanding. Scattered rhonchi noted on lung auscultation. Pt denies any SOA or production with cough. SaO2 92-96% this shift. IS completed, pt encouraged to utilize more often. Pt still understands that we are in need of a sputum sample and cup is at bedside. Dry, scaly, and cool BLE. Peripheral pulses 1-2+. No edema noted. Equal area attendant. WAP with BBB & at times prolonged QT. HR <100 noted t/o shift. ABD is round, soft, non-tender with hypoactive BS. Pt denies any N/V/D. Pt has been pleasant with staff. Call light within reach, will continue to monitor.
[2020-06-27 06:55] LABS: POC Glucose,Bedside 125 (70-110)
--- NOTE | 2020-06-27 09:06 | SW/DCPLANNER ---
Addendum entered by Ashley Lemus 07/04/20 09:28: Discharge summary has been faxed to [facility]. Original Note: Patient information will be faxed to [facility] for resumption of services. Patient will discharge home today. I will contact patients brother (Ronni) once patient is ready for discharge.
--- NOTE | 2020-06-27 09:12 | HMH.ACPN2 ---
<Bhargavi Stewart - Last Filed: 06/27/20 09:12> Internal Medicine - PN: Subj *Date: 06/27/20 *Time: 07:55 Interval history: Pt is without complaint this morning. He denies any pain or SOB. He notes infrequent non-productive cough. He would like to go home. Exam Vital signs and Labs for Last 24 Hours: Temp Pulse Resp BP Pulse Ox 98.2 F 82 17 120/66 94 L 06/27/20 08:00 06/27/20 08:00 06/27/20 08:00 06/27/20 08:00 06/27/20 08:00 Laboratory Results - last 24 hr 06/26/20 11:19: POC Glucose 188 H 06/26/20 16:53: POC Glucose 163 H 06/26/20 17:32: Vancomycin Trough 25.0 H 06/26/20 20:16: POC Glucose 187 H 06/27/20 06:18: POC Glucose 125 H I & O for Last 24 hours: Intake & Output 06/24/20 06/25/20 06/26/20 06/27/20 11:59 11:59 11:59 11:59 Intake Total 2620 / 2620 1455 / 1455 1813 / 1813 Output Total 1200 / 1200 2875 / 2875 1250 / 1250 Balance 1420 / 1420 -1420 / -1420 563 / 563 Weight 260 lb 9 oz 260 lb 6.4 oz 262 lb 4 oz Microbiology Reports for the Last 24 Hours: Microbiology 06/24/20 19:05 Blood Blood Culture - Preliminary NO GROWTH AFTER 48 HOURS 06/24/20 19:05 Blood Blood Culture - Preliminary NO GROWTH AFTER 48 HOURS - Constitutional no acute distress - *Routine Respiratory Exam Absent: rales, respiratory distress Comments: good air movement with few scattered wheezes, improved - *Routine Cardiovascular Exam Present: irregularly irregular - *Routine Abdominal Exam Present: soft, normoactive bowel sounds. Absent: tenderness, distended, guarding, firm, rigid - *Routine Extremities Exam Comments: BLE with stasis changes and cool to touch - *Routine Neurological Exam Present: alert, normal speech oriented to person and place Assessment and Plan (1) Atrial fibrillation Status: Chronic Qualifiers: Atrial fibrillation type: unspecified Qualified Code(s): I48.91 - Unspecified atrial fibrillation Category: Medical Code(s): I48.91 - Unspecified atrial fibrillation (2) Rapid atrial fibrillation Status: Resolved Category: Medical Code(s): I48.91 - Unspecified atrial fibrillation (3) Pneumonia Status: Acute Qualifiers: Pneumonia type: due to unspecified organism Laterality: right Lung location: middle lobe of lung Qualified Code(s): J18.9 - Pneumonia, unspecified organism Category: Medical Code(s): J18.9 - Pneumonia, unspecified organism (4) AMS (altered mental status) Status: Acute Category: Medical Code(s): R41.82 - Altered mental status, unspecified (5) Stasis dermatitis of both legs Status: Acute Category: Medical Code(s): I87.2 - Venous insufficiency (chronic) (peripheral) (6) Cigarette smoker Status: Chronic Category: Social Hx Code(s): F17.210 - Nicotine dependence, cigarettes, uncomplicated (7) Cognitive impairment Status: Acute Category: Medical Code(s): R41.89 - Other symptoms and signs involving cognitive functions and awareness (8) Former consumption of alcohol Status: Chronic Category: Social Hx Code(s): Z87.898 - Personal history of other specified conditions (9) HTN (hypertension) Status: Chronic Category: Medical Code(s): I10 - Essential (primary) hypertension (10) HLD (hyperlipidemia) Status: Chronic Category: Medical Code(s): E78.5 - Hyperlipidemia, unspecified (11) Diabetes mellitus with hyperglycemia Status: Chronic Qualifiers: Diabetes mellitus type: type 2 Diabetes mellitus alf insulin use: without 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
--- NOTE | 2020-06-27 09:26 | HMH.PHACONS ---
- Pharmacy Consult Date: 06/27/20 Time: 09:26 Referring provider: DR. TAMAYO Reason for Consult:: VANCOMYCIN TROUGH LEVEL Allergies and ADEs:: Allergies Allergy/AdvReac Type Severity Reaction Status Date / Time No Known Allergies Allergy Verified 06/25/20 00:02 Home Medications:: Home Medications Medication Instructions Recorded Confirmed Type Albuterol Sulfate [Proair Hfa] 1 - 2 puffs IH Q4HP PRN #1 inh 06/14/20 06/25/20 Rx Apixaban [Eliquis] 5 mg PO BID #60 tab 06/14/20 06/25/20 Rx Atorvastatin Calcium [Lipitor 40mg 40 mg PO HS #30 tab 06/14/20 06/25/20 Rx Tablet*] Clopidogrel Bisulfate [Clopidogrel 75 mg PO DAILY #30 tab 06/14/20 06/25/20 Rx 75mg Tab] Digoxin [Digoxin 0.125mg Tablet] 125 mcg PO DAILY 06/24/20 06/25/20 History Glycopyrrolate/Formoterol Fum 2 puffs IH BID 06/24/20 06/25/20 History [Bevespi Aerosphere Inhaler] Metformin HCl 500 mg PO BID 06/24/20 06/25/20 History Metoprolol Succinate [Toprol XL 150 mg PO DAILY 06/24/20 06/25/20 History 100mg tablet] Spironolactone [Spironolactone 25 mg PO DAILY 06/24/20 06/25/20 History 25mg Tablet] Torsemide [Demadex 20mg tablet] 20 mg PO DAILY 06/24/20 06/25/20 History lisinopriL [Zestril 5mg 5 mg PO DAILY 06/24/20 06/25/20 History Tablet] dilTIAZem HCL [Cardizem ER 240mg 240 mg PO DAILY #30 cap.er.24h 06/27/20 Rx Capsule] Height: 1.83 m Weight: 118.955 kg Laboratory Results:: Laboratory Results - last 24 hr 06/26/20 11:19: POC Glucose 188 H 06/26/20 16:53: POC Glucose 163 H 06/26/20 17:32: Vancomycin Trough 25.0 H 06/26/20 20:16: POC Glucose 187 H 06/27/20 06:18: POC Glucose 125 H Medical History: Reports:: Atrial Fibrillation, Congestive Heart Failure, Cerebrovascular Accident, Diabetes Mellitus Type 2, Hyperlipidemia, Hypertension, Peripheral Artery Disease, Peripheral Vascular Disease Denies:: Cancer, Diabetes Mellitus Type 1, MRSA Assessment and Plan (1) Atrial fibrillation Status: Chronic Qualifiers: Atrial fibrillation type: unspecified Qualified Code(s): I48.91 - Unspecified atrial fibrillation Category: Medical Code(s): I48.91 - Unspecified atrial fibrillation (2) Rapid atrial fibrillation Status: Resolved Category: Medical Code(s): I48.91 - Unspecified atrial fibrillation (3) Pneumonia Status: Acute Qualifiers: Pneumonia type: due to unspecified organism Laterality: right Lung location: middle lobe of lung Qualified Code(s): J18.9 - Pneumonia, unspecified organism Category: Medical Code(s): J18.9 - Pneumonia, unspecified organism (4) AMS (altered mental status) Status: Acute Category: Medical Code(s): R41.82 - Altered mental status, unspecified (5) Stasis dermatitis of both legs Status: Acute Category: Medical Code(s): I87.2 - Venous insufficiency (chronic) (peripheral) (6) Cigarette smoker Status: Chronic Category: Social Hx Code(s): F17.210 - Nicotine dependence, cigarettes, uncomplicated (7) Cognitive impairment Status: Acute Category: Medical Code(s): R41.89 - Other symptoms and signs involving cognitive functions and awareness (8) Former consumption of alcohol Status: Chronic Category: Social Hx Code(s): Z87.898 - Personal history of other specified conditions (9) HTN (hypertension) Status: Chronic Category: Medical Code(s): I10 - Essential (primary) hypertension (10) HLD (hyperlipidemia) Status: Chronic Category: Medical Code(s): E78.5 - Hyperlipidemia, unspecified (11) Diabetes mellitus with hyperglycemia Status: Chronic Qualifiers: Diabetes mellitus type: type 2 Diabetes mellitus terminal carman insulin use: without senior care use Qualified Code(s): E11.65 - Type 2 diabetes mellitus with hyperglycemia Category: Medical Code(s): E11.65 - Type 2 diabetes mellitus with hyperglycemia (12) Peripheral arterial disease Status: Chronic Category: Medical Code(s): I73.9 - [place]
--- NOTE | 2020-07-03 06:27 | HMH.DCSUM ---
General - General Admission date:: 06/24/20 <Gamal Saleem - 07/05/20 08:50> 06/24/20 <Dunia Nolan - 07/03/20 07:10> Discharge date: 06/27/20 <Dunia Nolan - 07/03/20 07:10> HPI HPI: Mr. Pickard is a 64-year-old male with a history of atrial fibrillation, CVA, type 2 diabetes mellitus, hyperlipidemia, hypertension, peripheral vascular disease who was recently hospitalized at [facility] from 06/11/2020 to 06/14/2020 for atrial fibrillation with a rapid ventricular response. He was sent from home to the ER by [facility] due to his confusion which they felt was new. Patient was felt to be noncompliant and did not know if he was taking his meds since the discharge. He was noted to have a prior history of alcoholism but stated he had not had a drink in 2 years. With evaluation in the emergency room CT of the head showed no acute intracranial findings and old left posterior cerebral artery distribution infarction ; Chest x-ray showed cardiomegaly with chronic changes in the right midlung infiltrate. Laboratory results showed a low platelet count at 129 and otherwise normal . ABG showed a pH of 7.41, PCO2 of 46.5, PO2 of 69.5 and a bicarb of 28.9. Blood chemistries were satisfactory. He did have some elevation in liver function studies with alkaline phosphotase of 147. Lactate was normal. Patient was noted to be a poor historian and most information was obtained from records and previous assessments. Upon arrival to the emergency room he was disoriented and unable to give any additional history. The patient did complain of visual disturbance. EMS noted pupillary inequality as well. The following a.m. at time of exam patient had difficulty with answering questions. He did not remember yesterday or why he was in the hospital. He denied chest pain and shortness of breath. He continued on a Cardizem drip for controlled ventricular response. <Dunia Nolan - 07/03/20 07:10> Hospital Course Hospital Course: Patient's readmission was felt most likely due to noncompliance with taking his medications at home. Care management was consulted for disposition. He was placed on pneumonia protocol for hospital-acquired pneumonia. Duo nebs were added. He continued on diltiazem drip and was restarted on his home meds. PT was consulted for evaluation of skin disruption on his lower legs. Patient was seen by cardiology who noted rate controlled with the diltiazem drip. He was started on p.o. diltiazem and drip was discontinued. He remained on Eliquis secondary to his history of atrial fibrillation. Patient continually denied any chest pain or pressure and SOB and did begin to feel better. He did have some cough. His appetite was good. At one point he did become agitated and aggressive with the nursing staff and threatened to leave AMA. Atrial fibrillation remained well controlled on medicine. Patient did decline any type of placement and [facility]. Repeat chest x-ray showed lungs to be clear. Findings on previous chest x-ray were likely from atelectasis rather than infiltrate. He was stable from a cardiac standpoint. Physical therapy was consulted for skin care and mobility/walking. They felt he was stable to be discharged to home with home health. They recommended using Eucerna or Aquaphor application to lower legs to reduce keratotic tissue. Blood cultures were negative. See data for other test results. On 06/27/2020 patient was discharged home in stable and satisfactory condition. He was to follow-up with SHAUN Lopez on 07/03/2020. Home health was arranged. <Dunia Nolan - 07/03/20 07:10> Objective Vital signs: Temp Pulse Resp BP Pulse Ox 98.2 F 84 17 120/66 94 L 06/27/20 08:00 06/27/20 10:24 06/27/20 09:20 06/27/20 08:00 06/27/20 09:20 <Gamal Saleem - 07/05/20 08:50> Temp Pulse Resp BP Pulse Ox 98.2 F 84 17 120/66 94 L
[2020-07-31 09:45] LABS: POC Glucose,Bedside 114 (70-110)
== END 2020-06-27 11:15 | disposition home health service (06) | DRG 194 ==
LOC: ER 18:22 → 2ND 20:24
PROVIDERS: Nurse Practitioner Family; Admitting Provider Family Medicine; Emergency Provider Emergency Medicine; Visit Provider Family Medicine
DX: J18.9 Pneumonia, unspecified organism (principal); I48.20 Chronic atrial fibrillation, unspecified; I11.0 Hypertensive heart disease with heart failure; I50.9 Heart failure, unspecified; J44.9 Chronic obstructive pulmonary disease, unspecified; Z79.01 Long term (current) use of anticoagulants; Z79.84 Long term (current) use of oral hypoglycemic drugs; Z79.52 Long term (current) use of systemic steroids; E11.65 Type 2 diabetes mellitus with hyperglycemia; I87.2 Venous insufficiency (chronic) (peripheral)
CPT/HCPCS: 36415; 70450; 71045; 80048; 80076; 80162; 80202; 82140; 82803; 82962; 83605; 84443; 84484; 85025; 85610; 85730; 86328; 87040; 93005; 94640; 94761; 96365; 96367; 96375; 97162; 99284; J1956; J3370